=== PATIENT | male | born 1985 | race Caucasian/White ===

== ENCOUNTER → 2018-05-24 14:13 | Outpatient (POV) | payer BC, SELFPAY | PROVIDERS: Visit Provider Specialist | DX: M79.641 Pain in right hand (principal) | CPT/HCPCS: 95886; 95908 ==

== ENCOUNTER → 2018-09-08 17:30 | Outpatient (CLI) | payer BC, SELFPAY ==
--- NOTE | 2018-09-08 17:49 | XR_ITS ---
XR acute abdomen series HISTORY: ITS.REASON: LEFT LOWER QUADRANT ABDOMINAL PAIN ORDERING PHYSICIAN: Brittney Landin MD PATIENT AGE: 33 years COMPARISON: None TECHNIQUE: Upright view of the chest is performed along with upright and supine views of the abdomen and pelvis. FINDINGS: Upright and supine views of the abdomen show an unremarkable bowel gas pattern. No intestinal obstruction or free air is evident. No abnormal calcifications or significant bony anomalies evident. No organomegaly apparent. IMPRESSION: No acute finding.
--- NOTE | 2018-09-08 17:49 | XR_ITS ---
XR chest 2V HISTORY: Cough ORDERING PHYSICIAN: Brittney Landin MD PATIENT AGE: 33 years COMPARISON: 04/01/2011 FINDINGS: The cardiomediastinal silhouette and pulmonary vascularity are within normal limits. The lungs are clear without infiltrates, suspicious nodules, or pleural effusions. No acute bony abnormalities. IMPRESSION: Negative chest, no acute finding
== END ==
PROVIDERS: PCP Family Medicine; Visit Provider Family Medicine
DX: R10.32 Left lower quadrant pain (principal)
CPT/HCPCS: 71046; 74021

== ENCOUNTER → 2018-09-09 10:23 | Outpatient (CLI) | payer BC, SELFPAY ==
--- NOTE | 2018-09-09 10:29 | CT_ITS ---
CT abdomen pelvis wo con CLINICAL INDICATION: Left lower quadrant pain and hematuria ITS.REASON: HEMATURIA, LLQ PAIN ORDERING PHYSICIAN: PHU Rocha PATIENT AGE: 33 years COMPARISON: TECHNIQUE: Axial images obtained with sagittal and coronal reformats. All CT scans at the facility use one or more dose reduction, viz: automated exposure control, ma/kV adjustment per patient size (including targeted exams where dose is matched to indication, i.e. head), or iterative reconstruction technique. PROCEDURE: Oral Contrast: None IV Contrast: None . FINDINGS: Lung bases are clear. There are coronary artery calcifications. There is diffuse fatty liver. The spleen, adrenal glands, and pancreas and gallbladder have an unremarkable unenhanced CT appearance. Severe atrophy of the right kidney with only a small vestigial kidney noted on the right. There is hypertrophy of the left kidney. No renal or ureteral calculi. No hydronephrosis. No intestinal obstruction or free air. Unremarkable appendix. Hyperdensity noted within the appendix and may be related to ingested material. There is stranding of the mesenteric fat in the left mid abdominal region at the level of the umbilicus. Within this region there is a small central area of isodensity surrounded by hypodensity and then peripheral slight increase density of the fat forming a part Consistent with intraperitoneal focal fat infarction/epiploic appendagitis. No evidence of diverticulitis. No intestinal obstruction or free air within small amount fluid in the pelvis centrally. IMPRESSION: 1. Intraperitoneal focal fat infarction/epiploic appendagitis left lower quadrant. 2. Severe atrophy/hypoplasia of the right kidney with hypertrophy of the left kidney. 3. Fatty liver
== END ==
PROVIDERS: PCP Family Medicine; Visit Provider Physician Assistant
DX: R10.32 Left lower quadrant pain (principal); R31.9 Hematuria, unspecified
CPT/HCPCS: 74176

== ENCOUNTER → 2018-12-30 16:12 | Outpatient (CLI) | payer BC, SELFPAY ==
[2018-12-30 16:17] LABS: Microscopic, Urine URINE MICROSCOPIC (MICROSCOPIC)
[2018-12-30 17:03] LABS: Basophils # 0.1 K/mm3 (0-0.2); Basophils % 0.8 % (0.1-2.0); Eosinophils # 0.2 K/mm3 (0.0-0.4); Eosinophils % 2.4 % (0.1-12.0); Lymphocytes # 1.7 K/mm3 (0.7-4.5); Lymphocytes % 27.6 % (10-50); Mean Corpuscular HGB Conc 33.3 g/dL (31.8-35.4); Mean Corpuscular Hemoglobin 30.5 pg (27.0-31.2); Mean Corpuscular Volume 91.4 fl (80-94); Mean Platelet Volume 7.6 fl (7.4-10.4); Monocytes # 0.4 K/mm3 (0.1-1.0); Neutrophils # 3.9 K/mm3 (1.8-7.8); Neutrophils % 63.1 % (37.0-80.0); Platelet Count 230 K/mm3 (142-424); Red Blood Count 5.57 M/mm3 (4.60-6.20); Red Cell Distribution Width 13.8 % (11.5-17.5); White Blood Count 6.2 K/mm3 (4.8-10.8)
[2018-12-30 17:15] LABS: Appearance,Urine CLEAR (Clear); Bilirubin,Urine Negative (Negative); Blood, Urine Negative (Negative); Color,Urine YELLOW (Yellow); Glucose,Urine (UA) Negative (Negative); Ketones,Urine Negative (Negative); Leukocyte Esterase,Urine Negative (Negative); Nitrate,Urine Negative (Negative); PH,Urine 5.5 (5.0-8.5); Protein,Urine 2+ (Negative); Specific Gravity, Urine >= 1.030 (1.005-1.030); Urobilinogen,Urine 0.2 EU/dl (0.2)
[2018-12-30 17:36] LABS: Albumin Level 4.5 gm/dL (3.4-5.0); Anion Gap 15.7 mEq/L (5-15); Blood Urea Nitrogen 20 mg/dL (7-18); Calcium 9.8 mg/dL (8.5-10.1); Carbon Dioxide 28 mmol/L (21.0-32.0); Chloride 103 mmol/L (98-107); Creatinine,Serum 1.32 mg/dL (0.70-1.30); Estimated Glomerular Filt Rate 63 ml/min (>60); GFR (African American) 76 ML/MIN (>60); Glucose 73 mg/dL (74-106); Potassium 3.7 mmoL/L (3.5-5.1); Sodium 143 mmol/L (136-145)
[2018-12-30 17:53] LABS: Creatinine,Urine Random 193 mg/dL (20-320)
[2018-12-31 11:00] LABS: Total Protein,Urine Random 197.8 mg/dL (0.0-11.9)
[2019-01-03 13:18] LABS: Parathyroid Hormone Intact 36 pg/mL (15-65); Vitamin D 25 Hydroxy 16.6 ng/mL (30.0-100.0)
== END ==
PROVIDERS: PCP Family Medicine; Visit Provider Internal Medicine Nephrology
DX: R80.9 Proteinuria, unspecified (principal)
CPT/HCPCS: 36415; 80069; 81001; 82570; 82652; 83970; 84155; 84156; 84166; 85025

== ENCOUNTER → 2019-02-01 08:29 | Outpatient (CLI) | payer BC, SELFPAY ==
[2019-02-01 10:17] LABS: Hemoglobin A1C 5.7 % (0.0-7.0)
[2019-02-01 10:41] LABS: Anion Gap 16.5 mEq/L (5-15); Blood Urea Nitrogen 18 mg/dL (7-18); Calcium 9.5 mg/dL (8.5-10.1); Carbon Dioxide 25 mmol/L (21.0-32.0); Chloride 106 mmol/L (98-107); Chol/HDL Ratio 3.6 (1-3.5); Cholesterol 116 mg/dL (140-200); Creatinine,Serum 1.35 mg/dL (0.70-1.30); Estimated Glomerular Filt Rate 61 ml/min (>60); Free T4 (Free Thyroxine) 0.92 ng/dl (0.76-1.46); GFR (African American) 74 ML/MIN (>60); Glucose 91 mg/dL (74-106); HDL Cholesterol 32 mg/dL (27-67); LDL Cholesterol 49 mg/dL (0-130); Potassium 3.5 mmoL/L (3.5-5.1); Sodium 144 mmol/L (136-145); Thyroid Stimulating Hormone 2.95 uIU/ml (0.358-3.740); Triglycerides 174 mg/dL (30-200); VLDL Cholesterol 35 mg/dL (0-40)
== END ==
PROVIDERS: Visit Provider Family Medicine
DX: I10 Essential (primary) hypertension (principal); E78.1 Pure hyperglyceridemia; R73.01 Impaired fasting glucose; E78.2 Mixed hyperlipidemia
CPT/HCPCS: 36415; 80048; 80061; 83036; 84439; 84443

== ENCOUNTER → 2019-07-02 08:16 | Outpatient (CLI) | payer BC, SELFPAY ==
[2019-07-02 08:22] LABS: Microscopic, Urine URINE MICROSCOPIC (MICROSCOPIC)
[2019-07-02 08:46] LABS: Basophils % 0.7 % (0.1-2.0); Eosinophils # 0.1 K/mm3 (0.0-0.4); Eosinophils % 2.1 % (0.1-12.0); Hematocrit 48.2 % (42.0-52.0); Hemoglobin 16.1 g/dL (14.1-18.0); Lymphocytes # 1.4 K/mm3 (0.7-4.5); Lymphocytes % 29.2 % (10-50); Mean Corpuscular HGB Conc 33.3 g/dL (31.8-35.4); Mean Corpuscular Volume 90.1 fl (80-94); Mean Platelet Volume 7.9 fl (7.4-10.4); Monocytes # 0.2 K/mm3 (0.1-1.0); Monocytes % 3.8 % (1.7-9.3); Neutrophils # 3.1 K/mm3 (1.8-7.8); Neutrophils % 64.2 % (37.0-80.0); Platelet Count 179 K/mm3 (142-424); Red Blood Count 5.35 M/mm3 (4.60-6.20); Red Cell Distribution Width 13.4 % (11.5-17.5); White Blood Count 4.8 K/mm3 (4.8-10.8)
[2019-07-02 08:48] LABS: Appearance,Urine CLEAR (Clear); Bilirubin,Urine Negative (Negative); Blood, Urine Negative (Negative); Color,Urine YELLOW (Yellow); Glucose,Urine (UA) Negative (Negative); Ketones,Urine Negative (Negative); Leukocyte Esterase,Urine Negative (Negative); Nitrate,Urine Negative (Negative); Protein,Urine 2+ (Negative); Specific Gravity, Urine >= 1.030 (1.005-1.030); Urobilinogen,Urine 0.2 EU/dl (0.2)
[2019-07-02 08:51] LABS: Total Protein,Urine Random 129.8 mg/dL (0.0-11.9)
[2019-07-02 09:12] LABS: Squamous Epithelial Cell,Urine Occasional #/hpf (0-5)
[2019-07-02 09:13] LABS: Bacteria,Urine Trace /lpf
[2019-07-02 10:03] LABS: Anion Gap 13.9 mEq/L (5-15); Blood Urea Nitrogen 19 mg/dL (7-18); Calcium 9.2 mg/dL (8.5-10.1); Carbon Dioxide 27 mmol/L (21.0-32.0); Chloride 108 mmol/L (98-107); Creatinine,Serum 1.25 mg/dL (0.70-1.30); Estimated Glomerular Filt Rate 67 ml/min (>60); GFR (African American) 80 ML/MIN (>60); Glucose 95 mg/dL (74-106); Phosphorous 3.3 mg/dL (2.4-4.9); Potassium 3.9 mmoL/L (3.5-5.1); Sodium 145 mmol/L (136-145)
[2019-07-06 07:26] LABS: Microalbumin, Urine 961.3 ug/mL (Not Estab.)
== END ==
PROVIDERS: Visit Provider Internal Medicine Nephrology
DX: R80.9 Proteinuria, unspecified (principal)
CPT/HCPCS: 36415; 80069; 81001; 82043; 84155; 85025

== ENCOUNTER → 2019-07-11 14:30 | Outpatient (POV) | payer BC, SELFPAY | PROVIDERS: Visit Provider Internal Medicine Nephrology | DX: Z00.00 Encounter for general adult medical examination without abnormal findings (principal) ==

== ENCOUNTER → 2019-12-09 08:16 | Outpatient (CLI) | payer BC, SELFPAY ==
[2019-12-09 11:45] LABS: Alanine Aminotransferase 37 U/L (12-78); Albumin/Globulin Ratio 1.5 (1.1-1.8); Alkaline Phosphatase 63 U/L (46-116); Anion Gap 12.9 mEq/L (5-15); Aspartate Amino Transferase 22 U/L (15-37); Bilirubin,Total 0.4 mg/dL (0.2-1.0); Blood Urea Nitrogen 16 mg/dL (7-18); Carbon Dioxide 26 mmol/L (21.0-32.0); Chloride 107 mmol/L (98-107); Chol/HDL Ratio 4.9 (1-3.5); Cholesterol 170 mg/dL (140-200); Creatinine,Serum 1.19 mg/dL (0.70-1.30); Estimated Glomerular Filt Rate 70 ml/min (>60); Free T4 (Free Thyroxine) 0.95 ng/dl (0.76-1.46); GFR (African American) 85 ML/MIN (>60); Globulin 2.6 gm/dl (1.3-3.2); Glucose 107 mg/dL (74-106); HDL Cholesterol 35 mg/dL (27-67); LDL Cholesterol 84 mg/dL (0-130); Potassium 3.9 mmoL/L (3.5-5.1); Sodium 142 mmol/L (136-145); Thyroid Stimulating Hormone 3.02 uIU/ml (0.358-3.740); Total Protein,Serum 6.6 gm/dL (6.4-8.2); Triglycerides 257 mg/dL (30-200); VLDL Cholesterol 51 mg/dL (0-40)
[2019-12-09 11:48] LABS: Hemoglobin A1C 5.5 % (0.0-7.0)
[2019-12-09 11:51] LABS: Creatinine,Urine Random 146 mg/dL (20-320)
[2019-12-10 15:31] LABS: Vitamin D 25 Hydroxy 18.2 ng/mL (30.0-100.0)
[2019-12-10 15:32] LABS: Microalbumin, Urine 2300.6 ug/mL (Not Estab.)
== END ==
PROVIDERS: Visit Provider Family Medicine
DX: E78.1 Pure hyperglyceridemia (principal); E78.2 Mixed hyperlipidemia; R73.01 Impaired fasting glucose; I10 Essential (primary) hypertension; E55.9 Vitamin D deficiency, unspecified
CPT/HCPCS: 36415; 80053; 80061; 82043; 82570; 82652; 83036; 84439; 84443

== ENCOUNTER → 2020-08-07 08:48 | Outpatient (CLI) | payer BC, SELFPAY ==
[2020-08-07 08:51] LABS: Microscopic, Urine URINE MICROSCOPIC (MICROSCOPIC)
[2020-08-07 09:08] LABS: Basophils % 0.7 % (0.1-2.0); Eosinophils # 0.1 K/mm3 (0.0-0.4); Eosinophils % 2.1 % (0.1-12.0); Hematocrit 47.7 % (42.0-52.0); Hemoglobin 16.1 g/dL (14.1-18.0); Lymphocytes # 1.7 K/mm3 (0.7-4.5); Lymphocytes % 29.1 % (10-50); Mean Corpuscular HGB Conc 33.7 g/dL (31.8-35.4); Mean Corpuscular Hemoglobin 30.5 pg (27.0-31.2); Mean Corpuscular Volume 90.5 fl (80-94); Monocytes # 0.2 K/mm3 (0.1-1.0); Monocytes % 4.2 % (1.7-9.3); Neutrophils # 3.6 K/mm3 (1.8-7.8); Neutrophils % 63.8 % (37.0-80.0); Platelet Count 187 K/mm3 (142-424); Red Blood Count 5.27 M/mm3 (4.60-6.20); Red Cell Distribution Width 13.6 % (11.5-17.5); White Blood Count 5.7 K/mm3 (4.8-10.8)
[2020-08-07 09:21] LABS: Appearance,Urine CLEAR (Clear); Bilirubin,Urine Negative (Negative); Blood, Urine TRACE-I (Negative); Color,Urine YELLOW (Yellow); Glucose,Urine (UA) Negative (Negative); Ketones,Urine Negative (Negative); Leukocyte Esterase,Urine Negative (Negative); Nitrate,Urine Negative (Negative); Protein,Urine 3+ (Negative); Specific Gravity, Urine >= 1.030 (1.005-1.030); Urobilinogen,Urine 0.2 EU/dl (0.2)
[2020-08-07 09:43] LABS: Bacteria,Urine Trace /lpf; Hyaline Casts,Urine Occasional #/lpf (0); Squamous Epithelial Cell,Urine Occasional #/hpf (0-5)
[2020-08-07 09:44] LABS: Creatinine,Urine Random 180 mg/dL (Not Estab.)
[2020-08-07 10:37] LABS: Albumin Level 4.6 g/dl (3.5-5.0); Blood Urea Nitrogen 16 mg/dl (9-20); Carbon Dioxide 28 mmol/L (22.0-30.0); Chloride 106 mmol/L (98-107); Estimated Glomerular Filt Rate 63 ml/min (>60); GFR (African American) 76 ML/MIN (>60); Glucose 114 mg/dl (74-100); Sodium 143 mmol/L (136-145); Uric Acid 3.1 mg/dl (3.5-8.5)
[2020-08-07 10:49] LABS: Intact Parathyroid Hormone 37.6 pg/mL (7.5-53.5)
[2020-08-07 10:55] LABS: 25-OH Vitamin D, Total 33.7 ng/mL (30-100)
== END ==
PROVIDERS: Visit Provider Internal Medicine Nephrology
DX: Q60.0 Renal agenesis, unilateral (principal); N18.2 Chronic kidney disease, stage 2 (mild)
CPT/HCPCS: 36415; 80069; 81001; 82306; 82570; 83970; 84155; 84550; 85025

== ENCOUNTER → 2020-09-06 14:28 | Outpatient (POV) | payer BC, SELFPAY | PROVIDERS: Visit Provider Internal Medicine Nephrology | DX: Z00.00 Encounter for general adult medical examination without abnormal findings (principal) ==

== ENCOUNTER → 2020-10-08 07:01 | Outpatient (CLI) | payer BC, SELFPAY ==
[2020-10-08 10:32] LABS: Collection Time,Urine 24 hours; Total Volume,Urine 1200 mL (800-1800)
[2020-10-08 10:39] LABS: Creatinine 24 Hour,Urine 1596 mg/24hr (630-2500)
[2020-10-08 10:45] LABS: Creatinine,Urine Random 133 mg/dL (Not Estab.); Total Protein 24 Hour,Urine 4284 mg/24 hr (40-90)
== END ==
PROVIDERS: Visit Provider Internal Medicine Nephrology
DX: R80.9 Proteinuria, unspecified (principal)
CPT/HCPCS: 82570; 84155

== ENCOUNTER → 2020-10-15 14:25 | Outpatient (POV) | payer BC, SELFPAY | PROVIDERS: Visit Provider Internal Medicine Nephrology | DX: Z00.00 Encounter for general adult medical examination without abnormal findings (principal) ==

== ENCOUNTER → 2020-10-15 15:50 | Outpatient (CLI) | payer BC, SELFPAY ==
[2020-10-15 16:52] LABS: Activated Partial Thrombo Time 27.9 seconds (23.6-34.0); INR 0.96 (0.9-1.1); Prothrombin Time 10.7 seconds (9.4-11.8)
[2020-10-17 10:27] LABS: HIV Screen 4th Generation wRfx Non Reactive (Non Reactive)
[2020-10-17 10:57] LABS: Hep A Ab, IgM Negative (Negative); Hepatitis B Core Antibody IgM Negative (Negative); Hepatitis B Surface Antigen Negative (Negative)
[2020-10-17 11:36] LABS: Complement C3 196 mg/dL (82-167); Hepatitis C Antibody <0.1 s/co ratio (0.0-0.9)
[2020-10-17 15:10] LABS: Immunoglobulin A, Qn 254 mg/dL (90-386); Immunoglobulin G, Qn 738 mg/dL (603-1613)
[2020-10-17 22:07] LABS: Albumin 4.1 g/dL (2.9-4.4); Alpha-1-Globulin 0.2 g/dL (0.0-0.4); Alpha-2-Globulin 0.8 g/dL (0.4-1.0); Free Kappa Lt Chains 18.4 mg/L (3.3-19.4); Free Lambda Lt Chains 18.5 mg/L (5.7-26.3); Gamma Globulin 0.9 g/dL (0.4-1.8); Protein, Total 7.5 g/dL (6.0-8.5)
[2020-10-18 02:28] LABS: Immunoglobulin M, Qn 145 mg/dL (20-172)
[2020-10-18 14:26] LABS: Antinuclear Antibodies, IFA Negative (.)
== END ==
PROVIDERS: Visit Provider Internal Medicine Nephrology
DX: R80.9 Proteinuria, unspecified (principal)
CPT/HCPCS: 36415; 80074; 82784; 83883; 84155; 84165; 85610; 85730; 86038; 86161; 86334; 86703; G0432

== ENCOUNTER → 2020-11-05 06:55 | Outpatient (CLI) | payer BC, SELFPAY ==
[2020-11-05 06:59] LABS: Microscopic, Urine URINE MICROSCOPIC (MICROSCOPIC)
[2020-11-05 07:37] LABS: Appearance,Urine CLEAR (Clear); Bilirubin,Urine Negative (Negative); Blood, Urine 1+ (Negative); Color,Urine YELLOW (Yellow); Glucose,Urine (UA) Negative (Negative); Ketones,Urine Negative (Negative); Leukocyte Esterase,Urine Negative (Negative); Nitrate,Urine Negative (Negative); PH,Urine 5.5 (5.0-8.5); Protein,Urine 3+ (Negative); Specific Gravity, Urine >= 1.030 (1.005-1.030); Urobilinogen,Urine 0.2 EU/dl (0.2)
[2020-11-05 07:51] LABS: Squamous Epithelial Cell,Urine Occasional #/hpf (0-5)
[2020-11-05 08:08] LABS: Basophils % 0.6 % (0.1-2.0); Eosinophils # 0.1 K/mm3 (0.0-0.4); Eosinophils % 1.8 % (0.1-12.0); Hematocrit 46.8 % (42.0-52.0); Hemoglobin 16.5 g/dL (14.1-18.0); Lymphocytes # 1.8 K/mm3 (0.7-4.5); Lymphocytes % 28.2 % (10-50); Mean Corpuscular HGB Conc 35.4 g/dL (31.8-35.4); Mean Corpuscular Hemoglobin 30.9 pg (27.0-31.2); Mean Corpuscular Volume 87.4 fl (80-94); Mean Platelet Volume 8.4 fl (7.4-10.4); Monocytes # 0.3 K/mm3 (0.1-1.0); Monocytes % 4.7 % (1.7-9.3); Neutrophils # 4.2 K/mm3 (1.8-7.8); Neutrophils % 64.6 % (37.0-80.0); Platelet Count 203 K/mm3 (142-424); Red Blood Count 5.35 M/mm3 (4.60-6.20); Red Cell Distribution Width 14.2 % (11.5-17.5); White Blood Count 6.5 K/mm3 (4.8-10.8)
[2020-11-05 08:16] LABS: Albumin Level 4.9 g/dl (3.5-5.0); Anion Gap 16.9 mEq/L (5-15); Blood Urea Nitrogen 18 mg/dl (9-20); Calcium 10.2 mg/dl (8.4-10.2); Carbon Dioxide 22 mmol/L (22.0-30.0); Chloride 106 mmol/L (98-107); Estimated Glomerular Filt Rate 63 ml/min (>60); GFR (African American) 76 ML/MIN (>60); Glucose 114 mg/dl (74-100); Phosphorous 3.7 mg/dl (2.5-4.5); Potassium 3.9 mmoL/L (3.5-5.1); Sodium 141 mmol/L (136-145)
[2020-11-05 10:00] LABS: Creatinine,Urine Random 239 mg/dL (Not Estab.)
== END ==
PROVIDERS: Visit Provider Internal Medicine Nephrology
DX: R80.9 Proteinuria, unspecified (principal)
CPT/HCPCS: 36415; 80069; 81001; 82570; 84155; 85025

== ENCOUNTER → 2020-12-21 07:55 | Outpatient (CLI) | payer BC, SELFPAY ==
[2020-12-21 09:41] LABS: Chloride 107 mmol/L (98-107)
[2020-12-21 09:42] LABS: Potassium 3.9 mmoL/L (3.5-5.1); Sodium 142 mmol/L (136-145)
[2020-12-21 09:44] LABS: Alanine Aminotransferase 35 U/L (12-78); Alkaline Phosphatase 68 U/L (38-126); Anion Gap 11.9 mEq/L (5-15); Aspartate Amino Transferase 29 U/L (17-59); Bilirubin,Total 0.6 mg/dl (0.2-1.3); Blood Urea Nitrogen 20 mg/dl (9-20); Carbon Dioxide 27 mmol/L (22.0-30.0); Cholesterol 171 mg/dl (140-200); Estimated Glomerular Filt Rate 58 ml/min (>60); GFR (African American) 70 ML/MIN (>60); Triglycerides 353 mg/dl (30-150); VLDL Cholesterol 71 mg/dL (0-40)
[2020-12-21 09:45] LABS: Albumin Level 4.8 g/dl (3.5-5.0); Albumin/Globulin Ratio 1.6 (1.1-1.8); Calcium 10.4 mg/dl (8.4-10.2); Chol/HDL Ratio 4.4 (1-3.5); Glucose 103 mg/dl (74-100); HDL Cholesterol 39 mg/dl (40-60); Total Protein,Serum 7.8 g/dl (6.3-8.2)
[2020-12-21 09:56] LABS: Direct LDL Cholesterol 80.21 mg/dL (100-129)
[2020-12-21 10:10] LABS: Creatinine,Urine Random 197 mg/dL (Not Estab.)
[2020-12-21 10:12] LABS: 25-OH Vitamin D, Total 19.8 ng/mL (30-100)
[2020-12-21 10:16] LABS: Thyroid Stimulating Hormone 3.24 uIU/mL (0.465-4.68)
[2020-12-21 17:04] LABS: Microalbumin > 1140.000 mg/L (0-16.7)
== END ==
PROVIDERS: Visit Provider Family Medicine
DX: I10 Essential (primary) hypertension (principal); E78.2 Mixed hyperlipidemia; E55.9 Vitamin D deficiency, unspecified
CPT/HCPCS: 36415; 80053; 80061; 82043; 82306; 82570; 84443

== ENCOUNTER → 2021-01-18 16:01 | Outpatient (CLI) | payer BC, SELFPAY ==
--- NOTE | 2021-01-18 16:01 | MR_ITS ---
PROCEDURE: MR HEAD/BRAIN WO CON CLINICAL INDICATION: new onset ice pick headaches COMPARISON: No exams were available for comparison TECHNIQUE: Routine multiplanar multi echo sequences are performed without gadolinium enhancement. FINDINGS: No midline shift, mass effect, intracranial hemorrhage, or hydrocephalus. No evidence of acute infarction The cerebellopontine angles, cerebellum, and brainstem are unremarkable. There is normal welch-white matter differentiation with no abnormal white matter signal intensity evident. The pituitary, optic chiasm, corpus callosum, and craniocervical junction have an unremarkable appearance. No mastoid effusion or sinus air-fluid level. IMPRESSION: Negative MRI of the brain without contrast. No acute finding. Dictated by: Cam Yoon MD 01/19/2021 12:53 Cam Yoon MD in [place] 01/19/2021 12:53
== END ==
PROVIDERS: PCP Family Medicine; Visit Provider Specialist
DX: R51.9 Headache, unspecified (principal)
CPT/HCPCS: 70551; G0399

== ENCOUNTER → 2021-04-02 07:15 | Outpatient (CLI) | payer BC, SELFPAY ==
[2021-04-02 07:19] LABS: Microscopic, Urine URINE MICROSCOPIC (MICROSCOPIC)
[2021-04-02 07:37] LABS: Basophils % 0.6 % (0.1-2.0); Eosinophils # 0.1 K/mm3 (0.0-0.4); Eosinophils % 2.3 % (0.1-12.0); Hematocrit 43.5 % (42.0-52.0); Hemoglobin 14.8 g/dL (14.1-18.0); Lymphocytes # 1.7 K/mm3 (0.7-4.5); Lymphocytes % 31.5 % (10-50); Mean Corpuscular HGB Conc 33.9 g/dL (31.8-35.4); Mean Corpuscular Hemoglobin 30.2 pg (27.0-31.2); Mean Corpuscular Volume 89.3 fl (80-94); Mean Platelet Volume 7.8 fl (7.4-10.4); Monocytes # 0.3 K/mm3 (0.1-1.0); Neutrophils # 3.2 K/mm3 (1.8-7.8); Neutrophils % 59.6 % (37.0-80.0); Platelet Count 165 K/mm3 (142-424); Red Blood Count 4.88 M/mm3 (4.60-6.20); Red Cell Distribution Width 14.1 % (11.5-17.5); White Blood Count 5.4 K/mm3 (4.8-10.8)
[2021-04-02 07:52] LABS: Appearance,Urine CLEAR (Clear); Bilirubin,Urine Negative (Negative); Blood, Urine Negative (Negative); Color,Urine YELLOW (Yellow); Glucose,Urine (UA) Negative (Negative); Ketones,Urine Negative (Negative); Leukocyte Esterase,Urine Negative (Negative); Nitrate,Urine Negative (Negative); PH,Urine 5.5 (5.0-8.5); Protein,Urine 2+ (Negative); Specific Gravity, Urine >= 1.030 (1.005-1.030); Urobilinogen,Urine 0.2 EU/dl (0.2)
[2021-04-02 08:02] LABS: Creatinine,Urine Random 147 mg/dL (Not Estab.)
[2021-04-02 08:04] LABS: Squamous Epithelial Cell,Urine Occasional #/hpf (0-5)
[2021-04-02 08:33] LABS: Albumin Level 4.5 g/dl (3.5-5.0); Anion Gap 10.1 mEq/L (5-15); Blood Urea Nitrogen 20 mg/dl (9-20); Calcium 9.3 mg/dl (8.4-10.2); Carbon Dioxide 26 mmol/L (22.0-30.0); Chloride 109 mmol/L (98-107); Estimated Glomerular Filt Rate 63 ml/min (>60); GFR (African American) 76 ML/MIN (>60); Glucose 103 mg/dl (74-100); Phosphorous 2.9 mg/dl (2.5-4.5); Potassium 4.1 mmoL/L (3.5-5.1); Sodium 141 mmol/L (136-145)
== END ==
PROVIDERS: Visit Provider Internal Medicine Nephrology
DX: N05.1 Unspecified nephritic syndrome with focal and segmental glomerular lesions (principal)
CPT/HCPCS: 36415; 80069; 81001; 82570; 84155; 85025

== ENCOUNTER → 2021-04-04 12:49 | Outpatient (POV) | payer BC, SELFPAY | PROVIDERS: Visit Provider Internal Medicine Nephrology | DX: Z00.00 Encounter for general adult medical examination without abnormal findings (principal) ==

== ENCOUNTER → 2021-11-07 07:06 | Outpatient (CLI) | payer BC, SELFPAY ==
[2021-11-07 07:12] LABS: Microscopic, Urine URINE MICROSCOPIC (MICROSCOPIC)
[2021-11-07 07:54] LABS: Basophils # 0.1 K/mm3 (0-0.2); Basophils % 2.5 % (0.1-2.0); Eosinophils # 0.1 K/mm3 (0.0-0.4); Hematocrit 49.2 % (42.0-52.0); Hemoglobin 16.4 g/dL (14.1-18.0); Lymphocytes # 1.7 K/mm3 (0.7-4.5); Lymphocytes % 32.6 % (10-50); Mean Corpuscular HGB Conc 33.3 g/dL (31.8-35.4); Mean Corpuscular Hemoglobin 30.9 pg (27.0-31.2); Mean Corpuscular Volume 92.9 fl (80-94); Mean Platelet Volume 8.5 fl (7.4-10.4); Monocytes # 0.3 K/mm3 (0.1-1.0); Monocytes % 5.3 % (1.7-9.3); Neutrophils % 57.7 % (37.0-80.0); Platelet Count 202 K/mm3 (142-424); Red Cell Distribution Width 13.9 % (11.5-17.5); White Blood Count 5.2 K/mm3 (4.8-10.8)
[2021-11-07 08:01] LABS: Albumin Level 4.5 g/dl (3.5-5.0); Anion Gap 10.7 mEq/L (5-15); Blood Urea Nitrogen 20 mg/dl (9-20); Calcium 9.9 mg/dl (8.4-10.2); Carbon Dioxide 29 mmol/L (22.0-30.0); Chloride 104 mmol/L (98-107); Estimated Glomerular Filt Rate 53 ml/min (>60); GFR (African American) 64 ML/MIN (>60); Glucose 103 mg/dl (74-100); Phosphorous 3.4 mg/dl (2.5-4.5); Potassium 3.7 mmoL/L (3.5-5.1); Sodium 140 mmol/L (136-145)
[2021-11-07 08:13] LABS: Intact Parathyroid Hormone 31.8 pg/mL (7.5-53.5)
[2021-11-07 08:17] LABS: 25-OH Vitamin D, Total 18.6 ng/mL (30-100)
[2021-11-07 09:25] LABS: Appearance,Urine CLEAR (Clear); Bilirubin,Urine Negative (Negative); Blood, Urine Negative (Negative); Color,Urine YELLOW (Yellow); Glucose,Urine (UA) Negative (Negative); Ketones,Urine Negative (Negative); Leukocyte Esterase,Urine Negative (Negative); Nitrate,Urine Negative (Negative); Protein,Urine 2+ (Negative); Specific Gravity, Urine >= 1.030 (1.005-1.030); Urobilinogen,Urine 0.2 EU/dl (0.2)
[2021-11-07 09:43] LABS: RBC,Urine Occasional #/hpf (0-3); Squamous Epithelial Cell,Urine Occasional #/hpf (0-5)
[2021-11-07 09:46] LABS: Creatinine,Urine Random 160 mg/dL (Not Estab.)
== END ==
PROVIDERS: Visit Provider Internal Medicine Nephrology
DX: N18.2 Chronic kidney disease, stage 2 (mild) (principal); E55.9 Vitamin D deficiency, unspecified
CPT/HCPCS: 36415; 80069; 81001; 82306; 82570; 83970; 84155; 85025

== ENCOUNTER → 2021-11-11 15:16 | Outpatient (POV) | payer BC, SELFPAY | PROVIDERS: Visit Provider Internal Medicine Nephrology | DX: Z00.00 Encounter for general adult medical examination without abnormal findings (principal) ==

== ENCOUNTER → 2022-04-09 07:33 | Outpatient (CLI) | payer BC, SELFPAY ==
[2022-04-09 07:40] LABS: Microscopic, Urine URINE MICROSCOPIC (MICROSCOPIC)
[2022-04-09 08:02] LABS: Basophils % 0.5 % (0.1-2.0); Eosinophils # 0.1 K/mm3 (0.0-0.4); Hematocrit 44.3 % (42.0-52.0); Hemoglobin 15.6 g/dL (14.1-18.0); Lymphocytes # 1.8 K/mm3 (0.7-4.5); Lymphocytes % 36.5 % (10-50); Mean Corpuscular HGB Conc 35.1 g/dL (31.8-35.4); Mean Corpuscular Hemoglobin 30.8 pg (27.0-31.2); Mean Corpuscular Volume 87.6 fl (80-94); Mean Platelet Volume 8.1 fl (7.4-10.4); Monocytes # 0.3 K/mm3 (0.1-1.0); Neutrophils # 2.7 K/mm3 (1.8-7.8); Neutrophils % 54.9 % (37.0-80.0); Platelet Count 181 K/mm3 (142-424); Red Blood Count 5.06 M/mm3 (4.60-6.20); Red Cell Distribution Width 13.6 % (11.5-17.5)
[2022-04-09 08:02] LABS: Appearance,Urine CLEAR (Clear); Bilirubin,Urine Negative (Negative); Blood, Urine TRACE-I (Negative); Color,Urine YELLOW (Yellow); Glucose,Urine (UA) Negative (Negative); Ketones,Urine Negative (Negative); Leukocyte Esterase,Urine Negative (Negative); Nitrate,Urine Negative (Negative); Protein,Urine 3+ (Negative); Specific Gravity, Urine >= 1.030 (1.005-1.030); Urobilinogen,Urine 0.2 EU/dl (0.2)
[2022-04-09 08:11] LABS: Creatinine,Urine Random 203 mg/dL (Not Estab.)
[2022-04-09 08:16] LABS: Bacteria,Urine Trace /lpf; RBC,Urine Occasional #/hpf (0-3); Squamous Epithelial Cell,Urine Occasional #/hpf (0-5)
[2022-04-09 08:18] LABS: Chloride 107 mmol/L (98-107); Sodium 141 mmol/L (136-145)
[2022-04-09 08:19] LABS: Potassium 3.8 mmoL/L (3.5-5.1)
[2022-04-09 08:21] LABS: Alanine Aminotransferase 48 U/L (12-78); Anion Gap 10.8 mEq/L (5-15); Aspartate Amino Transferase 41 U/L (17-59); Bilirubin,Total 0.5 mg/dl (0.2-1.3); Blood Urea Nitrogen 17 mg/dl (9-20); Carbon Dioxide 27 mmol/L (22.0-30.0); Cholesterol 172 mg/dl (140-200); Estimated Glomerular Filt Rate 58 ml/min (>60); GFR (African American) 70 ML/MIN (>60); Triglycerides 304 mg/dl (30-150); VLDL Cholesterol 61 mg/dL (0-40)
[2022-04-09 08:22] LABS: Albumin Level 4.4 g/dl (3.5-5.0); Albumin/Globulin Ratio 2.1 (1.1-1.8); Alkaline Phosphatase 58 U/L (38-126); Calcium 9.7 mg/dl (8.4-10.2); Chol/HDL Ratio 4.6 (1-3.5); Globulin 2.1 g/dL (1.3-3.2); Glucose 130 mg/dl (74-100); HDL Cholesterol 37 mg/dl (40-60); Total Protein,Serum 6.5 g/dl (6.3-8.2)
[2022-04-09 08:33] LABS: Direct LDL Cholesterol 90.85 mg/dL (100-129)
[2022-04-09 08:38] LABS: 25-OH Vitamin D, Total 30.9 ng/mL (30-100)
[2022-04-09 08:51] LABS: Thyroid Stimulating Hormone 3.75 uIU/mL (0.465-4.68)
[2022-04-09 10:06] LABS: Hemoglobin A1C 5.4 % (4.0-6.0)
== END ==
PROVIDERS: PCP Family Medicine; Visit Provider Internal Medicine Nephrology
DX: I10 Essential (primary) hypertension (principal); E78.2 Mixed hyperlipidemia; E78.1 Pure hyperglyceridemia; R73.01 Impaired fasting glucose; E55.9 Vitamin D deficiency, unspecified; N05.1 Unspecified nephritic syndrome with focal and segmental glomerular lesions; N18.2 Chronic kidney disease, stage 2 (mild)
CPT/HCPCS: 36415; 80053; 80061; 81001; 82306; 82570; 83036; 84100; 84155; 84443; 85025

== ENCOUNTER → 2022-04-14 15:14 | Outpatient (POV) | payer BC, SELFPAY | PROVIDERS: Visit Provider Internal Medicine Nephrology | DX: Z00.00 Encounter for general adult medical examination without abnormal findings (principal) ==

== ENCOUNTER → 2022-09-18 15:30 | Outpatient (CLI) | payer BC, SELFPAY ==
--- NOTE | 2022-09-18 15:36 | XR_ITS ---
FINAL REPORT CLINICAL HISTORY: UPPER ABDOMINAL PAIN FINDINGS: ABDOMEN SINGLE VIEW There is a nonspecific, nonobstructive bowel gas pattern. No bowel dilation is identified. There is a moderate amount of stool throughout the colon. No abnormal calcification is seen. IMPRESSION: Moderate stool burden. Reviewed, Interpreted and Dictated by Gabriel Veloz MD Transcribed by Wendy Cody Authenticated and [facility]
== END ==
PROVIDERS: PCP Family Medicine; Visit Provider Family Medicine
DX: R10.10 Upper abdominal pain, unspecified (principal)
CPT/HCPCS: 74018

== ENCOUNTER → 2022-11-08 10:04 | Outpatient (CLI) | payer BC, SELFPAY ==
[2022-11-08 10:12] LABS: Microscopic, Urine URINE MICROSCOPIC (MICROSCOPIC)
[2022-11-08 10:38] LABS: Hematocrit 44.9 % (42.0-52.0); Hemoglobin 14.5 g/dL (14.1-18.0); Mean Corpuscular HGB Conc 32.4 g/dL (31.8-35.4); Mean Corpuscular Hemoglobin 30.3 pg (27.0-31.2); Mean Corpuscular Volume 93.7 fl (80-94); Platelet Count 185 K/mm3 (142-424); Red Blood Count 4.79 M/mm3 (4.60-6.20); Red Cell Distribution Width 14.5 % (11.5-17.5); White Blood Count 4.6 K/mm3 (4.8-10.8)
[2022-11-08 11:07] LABS: Appearance,Urine CLEAR (Clear); Bilirubin,Urine Negative (Negative); Blood, Urine Negative (Negative); Color,Urine YELLOW (Yellow); Glucose,Urine (UA) Negative (Negative); Ketones,Urine Negative (Negative); Leukocyte Esterase,Urine Negative (Negative); Nitrate,Urine Negative (Negative); PH,Urine 5.5 (5.0-8.5); Protein,Urine 3+ (Negative); Specific Gravity, Urine >= 1.030 (1.005-1.030); Urobilinogen,Urine 0.2 EU/dl (0.2)
[2022-11-08 11:08] LABS: Albumin Level 4.4 g/dl (3.5-5.0); Anion Gap 10.9 mEq/L (5-15); Blood Urea Nitrogen 19 mg/dl (9-20); Carbon Dioxide 25 mmol/L (22.0-30.0); Chloride 110 mmol/L (98-107); Estimated Glomerular Filt Rate 57 ml/min (>60); GFR (African American) 69 ML/MIN (>60); Glucose 116 mg/dl (74-100); Phosphorous 3.1 mg/dl (2.5-4.5); Potassium 3.9 mmoL/L (3.5-5.1); Sodium 142 mmol/L (136-145)
[2022-11-08 11:23] LABS: Creatinine,Urine Random 168 mg/dL (Not Estab.)
[2022-11-08 11:31] LABS: Bacteria,Urine Trace /lpf; Hyaline Casts,Urine Occasional #/lpf (0); RBC,Urine Occasional #/hpf (0-3); Squamous Epithelial Cell,Urine Occasional #/hpf (0-5); WBC,Urine Occasional #/hpf (0-3)
== END ==
LOC: LAB 10:04
PROVIDERS: PCP Family Medicine; Visit Provider Internal Medicine Nephrology
DX: N18.31 Chronic kidney disease, stage 3a (principal)
CPT/HCPCS: 36415; 80069; 81001; 82570; 84155; 85014; 85018; 85048; 85049

== ENCOUNTER → 2022-11-10 15:14 | Outpatient (POV) | payer BC, SELFPAY | PROVIDERS: Visit Provider Internal Medicine Nephrology | DX: Z00.00 Encounter for general adult medical examination without abnormal findings (principal) ==

== ENCOUNTER → 2023-10-09 07:40 | Outpatient (CLI) | payer BC, SELFPAY ==
[2023-10-09 07:45] LABS: Microscopic, Urine URINE MICROSCOPIC (MICROSCOPIC)
[2023-10-09 08:07] LABS: Hematocrit 43.4 % (42.0-52.0); Hemoglobin 15.4 g/dL (14.1-18.0); Mean Corpuscular HGB Conc 35.4 g/dL (31.8-35.4); Mean Corpuscular Hemoglobin 31.7 pg (27.0-31.2); Mean Corpuscular Volume 89.6 fl (80-94); Platelet Count 173 K/mm3 (142-424); Red Blood Count 4.84 M/mm3 (4.60-6.20); Red Cell Distribution Width 14.3 % (11.5-17.5); White Blood Count 4.8 K/mm3 (4.8-10.8)
[2023-10-09 08:18] LABS: Appearance,Urine CLEAR (Clear); Bilirubin,Urine Negative (Negative); Blood, Urine Negative (Negative); Color,Urine YELLOW (Yellow); Glucose,Urine (UA) Negative (Negative); Ketones,Urine Negative (Negative); Leukocyte Esterase,Urine Negative (Negative); Nitrate,Urine Negative (Negative); Protein,Urine 3+ (Negative); Specific Gravity, Urine >= 1.030 (1.005-1.030); Urobilinogen,Urine 0.2 EU/dl (0.2)
[2023-10-09 08:36] LABS: Squamous Epithelial Cell,Urine Occasional #/hpf (0-5)
[2023-10-09 08:39] LABS: Creatinine,Urine Random 161 mg/dL (Not Estab.)
[2023-10-09 09:08] LABS: Chloride 108 mmol/L (98-107)
[2023-10-09 09:09] LABS: Potassium 3.9 mmoL/L (3.5-5.1)
[2023-10-09 09:11] LABS: Alanine Aminotransferase 38 U/L (12-78); Alkaline Phosphatase 69 U/L (38-126); Aspartate Amino Transferase 31 U/L (17-59); Bilirubin,Total 0.6 mg/dl (0.2-1.3); Blood Urea Nitrogen 22 mg/dl (9-20); Carbon Dioxide 27 mmol/L (22.0-30.0); Cholesterol 180 mg/dl (140-200); Estimated Glomerular Filt Rate 49 ml/min (>60); GFR (African American) 59 ML/MIN (>60)
[2023-10-09 09:12] LABS: Albumin Level 4.4 g/dl (3.5-5.0); Albumin/Globulin Ratio 1.8 (1.1-1.8); Calcium 9.1 mg/dl (8.4-10.2); Chol/HDL Ratio 6.4 (1-3.5); Globulin 2.4 g/dL (1.3-3.2); Glucose 130 mg/dl (74-100); HDL Cholesterol 28 mg/dl (40-60); Total Protein,Serum 6.8 g/dl (6.3-8.2)
[2023-10-09 09:20] LABS: Hemoglobin A1C 5.9 % (4.0-6.0); Triglycerides 482 mg/dl (30-150)
[2023-10-09 09:23] LABS: Direct LDL Cholesterol 73.61 mg/dL (100-129)
[2023-10-09 09:34] LABS: Anion Gap 10.9 mEq/L (5-15); Sodium 142 mmol/L (136-145)
[2023-10-09 16:06] LABS: Blood Urea Nitrogen 21 mg/dl (9-20); Carbon Dioxide 25 mmol/L (22.0-30.0); Chloride 107 mmol/L (98-107); Estimated Glomerular Filt Rate 53 ml/min (>60); GFR (African American) 64 ML/MIN (>60); Phosphorous 3.3 mg/dl (2.5-4.5)
[2023-10-09 16:07] LABS: Albumin Level 4.3 g/dl (3.5-5.0); Glucose 130 mg/dl (74-100)
[2023-10-09 16:08] LABS: Calcium 8.9 mg/dl (8.4-10.2); Sodium 139 mmol/L (136-145)
[2023-10-09 16:23] LABS: 25-OH Vitamin D, Total 28.8 ng/mL (30-100)
[2023-10-09 16:38] LABS: Thyroid Stimulating Hormone 2.84 uIU/mL (0.465-4.68)
[2023-10-18 22:28] LABS: PTH Related Peptide < 2.0
== END ==
LOC: LAB 07:41
PROVIDERS: PCP Family Medicine; Visit Provider Internal Medicine Nephrology
DX: N18.31 Chronic kidney disease, stage 3a (principal); E78.2 Mixed hyperlipidemia; E78.1 Pure hyperglyceridemia; E55.9 Vitamin D deficiency, unspecified; R73.01 Impaired fasting glucose; Z68.41 Body mass index [BMI] 40.0-44.9, adult; I12.9 Hypertensive chronic kidney disease with stage 1 through stage 4 chronic kidney disease, or unspecified chronic kidney disease
CPT/HCPCS: 36415; 80053; 80061; 80069; 81001; 82043; 82306; 82397; 82570; 83036; 84155; 84443; 85014; 85018; 85048; 85049

== ENCOUNTER 2024-08-17 07:08 | Outpatient (CLI) | payer BC, SELFPAY ==
[2024-08-17 07:14] LABS: Microscopic, Urine URINE MICROSCOPIC (MICROSCOPIC)
[2024-08-17 07:30] LABS: Hematocrit 41.1 % (42.0-52.0); Hemoglobin 14.7 g/dL (14.1-18.0); Mean Corpuscular HGB Conc 35.8 g/dL (31.8-35.4); Mean Corpuscular Hemoglobin 32.3 pg (27.0-31.2); Mean Corpuscular Volume 90.3 fl (80-94); Platelet Count 169 K/mm3 (142-424); Red Blood Count 4.54 M/mm3 (4.60-6.20); Red Cell Distribution Width 14.6 % (11.5-17.5); White Blood Count 4.2 K/mm3 (4.8-10.8)
[2024-08-17 08:03] LABS: Appearance,Urine CLEAR (Clear); Bilirubin,Urine Negative (Negative); Blood, Urine TRACE-I (Negative); Color,Urine YELLOW (Yellow); Glucose,Urine (UA) Negative (Negative); Ketones,Urine Negative (Negative); Leukocyte Esterase,Urine Negative (Negative); Nitrate,Urine Negative (Negative); Protein,Urine 3+ (Negative); Specific Gravity, Urine >= 1.030 (1.005-1.030); Urobilinogen,Urine 0.2 EU/dl (0.2)
[2024-08-17 08:08] LABS: Albumin Level 4.3 g/dl (3.5-5.0); Chloride 108 mmol/L (98-107); Potassium 3.9 mmoL/L (3.5-5.1); Sodium 139 mmol/L (136-145)
[2024-08-17 08:11] LABS: Anion Gap 10.9 mEq/L (5-15); Blood Urea Nitrogen 18 mg/dl (9-20); Carbon Dioxide 24 mmol/L (22.0-30.0); Estimated Glomerular Filt Rate 62 ml/min (>60); GFR (African American) 75 ML/MIN (>60)
[2024-08-17 08:12] LABS: Calcium 9.7 mg/dl (8.4-10.2); Glucose 132 mg/dl (74-100)
[2024-08-17 08:20] LABS: Bacteria,Urine Trace /lpf; RBC,Urine Occasional #/hpf (0-3); Squamous Epithelial Cell,Urine Occasional #/hpf (0-5); WBC,Urine Occasional #/hpf (0-3)
[2024-08-17 08:23] LABS: Creatinine,Urine Random 193 mg/dL (Not Estab.)
[2024-08-17 08:40] LABS: 25-OH Vitamin D, Total 23.1 ng/mL (30-100)
== END 2024-08-17 23:59 | disposition home or self-care (01) ==
LOC: LAB 07:10
PROVIDERS: PCP Family Medicine; Visit Provider Internal Medicine Nephrology
DX: N05.1 Unspecified nephritic syndrome with focal and segmental glomerular lesions (principal)
CPT/HCPCS: 36415; 80069; 81001; 82306; 82570; 84156; 85027

== ENCOUNTER 2024-08-19 08:48 | Outpatient (POV) | payer BC, SELFPAY | END 2024-08-19 23:59 | disposition home or self-care (01) | LOC: SC 08:48 | PROVIDERS: Visit Provider Student in an Organized Health Care Education/Training Program | DX: Z00.00 Encounter for general adult medical examination without abnormal findings (principal) ==

== ENCOUNTER 2025-07-13 07:26 | Outpatient (CLI) | payer BC, SELFPAY ==
--- OUTSIDE RECORDS SUMMARY | 2024-10-14 10:15 | XMS_ITS ---
Author Organization [facility] Address [address] [id number] Care Team Providers Care Market Consultant Name Role Phone Lauren Pradhan Primary Care Provider Luis E Rogers Unavailable [phone] Allergies Allergen (clinical drug ingredient) Drug/Non Drug Allergy documented on EMR Reaction Allergy Type Onset Date Status lisinopril Lisinopril Unknown Drug Allergy Activ e Results Component Value Reference Range Notes Glycohemoglobin A1c (in hous e) Reviewed date:10/18/2024 08:13:51 AM Interpretation:6.1 Performing Lab: Notes/Report: 6.1 glycohemoglobin 6.1% 5 - 6.5 % P-Comprehensive Metabolic Pa yohan (CMP) Reviewed date:10/18/2024 08:13:51 AM Interpretation:Cl 109, gluc 106, creat 1.39 Performing Lab: Notes/Report: Test performed by [facility], [address] , [address], [place] [address] Jhony Dangelo MD, [employer] Inserter CLIA: [id number] Sodium 145 135-145 mmol/L Potassium 4.1 3.5-5.3 mmol/L Chloride 109 97-108 mmol/L CO2 23 22-32 mmol/L Glucose 106 65-99 mg/dL BUN 17 6-20 mg/dL Creatinine 1.39 0.70-1.30 mg/dL Calcium 9.8 8.6-10.4 mg/dL eGFR by Creatinine 66 >59 mL/min/1.73m2 Protein 6.8 6.0-8.3 g/dL Albumin 4.5 3.5-5.3 g/dL Alkaline Phosphatase 71 40-129 IU/L ALT (SGPT) 29 <5-55 IU/L AST (SGOT) 22 <5-46 IU/L Bilirubin, Total 0.3 <0.2-1.2 mg/dL A/G Ratio 2.0 1.1-2.5 P-Lipid Panel Reviewed date:10/18/2024 08:13:51 AM Interpretation:chol 236, trig 603, hdl 35, chol/hdl 6.74, non-hdl 201 Performing Lab: Notes/Report: Test performed by [facility] [address] [place] [address] , [address], [place] [address] Jhony Dangelo MD, Carbon Rod Inserter CLIA: [id number] Cholesterol 236 <200 mg/dL Triglycerides 603 <150 mg/dL HDL Cholesterol 35 >39 mg/dL Cholesterol / HDL Ratio 6.74 0.00-4.99 Ratio Non-HDL Cholesterol 201 <130 mg/dL LDL Cholesterol (Calculation) SEE COMMENT <130 mg/dL LDL Cholesterol Levels* Less than 100 mg/dL Optimal 100 to 129 mg/dL Near Optimal/ Above Optimal 130 to 159 mg/dL Borderline High 160 to 189 mg/dL High 190 mg/dL and above Very High * Categories as recommended by the 2004 ATPIII guidelines Unable to calculate due to Triglycerides >400 mg/dL LDL/HDL Ratio SEE COMMENT <3.3 Ratio Unable to calculate due to Triglycerides >400 mg/dL LDL Cholesterol Patient History Test Date: 10/14/2024 LDL Results: SEE COMMENT Units: mg/dL % Change: - P-Phosphorus Reviewed date:10/18/2024 08:13:51 AM Interpretation:Normal Performing Lab: Notes/Report: Test performed by [facility] , [facility], [place] [address] Jhony Dangelo MD, [employer] Inserter CLIA: [id number] Phosphorus 3.1 2.5-4.5 mg/dL P-TSH reflex to FT4 Reviewed date:10/18/2024 08:13:51 AM Interpretation:Normal Performing Lab: Notes/Report: Test performed by [facility] [address] , [place] [address] Jhony Dangelo MD, Carbon Rod Inserter CLIA: [id number] TSH reflex to FT4 2.76 0.43-5.25 mU/L P-Microalbumin/Creatinine, R andom Urine Sample Reviewed date:10/18/2024 08:13:51 AM Interpretation:alb/creat 3186 Performing Lab: Notes/Report: Test performed by [facility] [address] , [address], [place] [address] Jhony Dangelo MD, [employer] Rod Inserter CLIA: [id number] Albumin/Creatinine Ratio, Urine 3186 0-30 ug/mg Microalbumin, Urine, Random 267.3 Creatinine, Urine 83.9 P-Vitamin D 25-Hydroxy Reviewed date:10/18/2024 08:13:51 AM Interpretation: Performing Lab: Notes/Report: Test performed by [facility] , [place] [address] Jhony Dangelo MD, [employer] Inserter CLIA: [id number] Vitamin D 25-Hydroxy 15.9 30.0-100.0 ng/mL Interpretation of Vitamin D 25 OH: < 20 ng/mL - Deficiency 20 - 29 ng/mL - Insufficiency 30 - 100 ng/mL - Sufficiency > 100 ng/mL - Super-therapeutic- toxicity may occur above this level. Clinical correlation required. REASON FOR VISIT check up and refills Medications Medication SIG (Take, Route, Frequency, Duration) Notes Start Date End Date Status Fenofibrate 145 MG 1 tab(s) orally once a day; Duration: 90 days Active Jardiance 10 MG 1 tablet Orally Once a day; Duration: 90 days 10/14/2024 Active Aspirin 81 MG 1 tab(s) orally once a day Active D3-50 1.25 MG (94317 UT) 1 cap(s) orally once a week; Duration: 90 days Active Zetia 10 MG 1 tab(s) orally once a day; Duration: 90 days Active hydroCHLOROthiazide 12.5 MG 1 capsule in the morning Orally Once a day; Duration: 90 days Active Rosuvastatin Calcium 40 MG TAKE 1 TABLET BY MOUTH DAILY; Duration: 90 days Active Carvedilol 12.5 MG 1 tab(s) orally 2 ti mes a day; Duration: 90 days Active Valsartan 320 MG 1 tab(s) orally once a day; Duration: 90 days Active Vital Signs Blood pressure systolic 170 mm Hg 10/14/20 24 Blood pressure diastolic 110 mm Hg 024 Heart Rate 105 /min 10/14/2024 Height 69 in 10/14/2024 Weight 284.8 lbs 10/14/2024 BMI 42.05 kg/m2 10/14/2024 Encounters Encounter Location Date Provider Diagnosis [facility] [address] [id number] 10/14/2024 Luis E Rogers Essential hypertensi on I10 ; Mixed hyperlipidemia E78.2 ; Acquired hypertriglyceridemia E78.1 ; Vitamin D deficiency E55.9 ; IFG (impaired fasting glucose) R73.01 and Stage 3a chronic kidney disease (CKD) N18.31 Assessments Encounter Date Diagnosis (ICD Code) Assessment Notes Treatment Notes Treatment Clinical Notes Section Notes 10/14/2024 Essential hypertensi on (ICD-10 - I10) 10/14/2024 Mixed hyperlipidemia (ICD-10 - E78.2) 10/14/2024 Acquired hypertriglyceridemia (ICD-10 - E78.1) 10/14/2024 Vitamin D deficiency (ICD-10 - E55.9) 10/14/2024 IFG (impaired fastin g glucose) (ICD-10 - R73.01) 10/14/2024 Stage 3a chronic kid black disease (CKD) (ICD-10 - N18.31) Plan Of Treatment Medication Medication Name Sig Start Date Stop Date Notes Fenofibrate 145 MG 1 tab(s) orally once a day; Duration: 90 days Jardiance 10 MG 1 tablet Orally Once a day; Duration: 90 days 10/14/2024 Zetia 10 MG 1 tab(s) orally once a day; Duration: 90 days hydroCHLOROthiazide 12.5 MG 1 capsule in the morning Orally Once a day; Duration: 90 days Rosuvastatin Calcium 40 MG TAKE 1 TABLET BY MOUTH DAILY; Duration: 90 days Carvedilol 12.5 MG 1 tab(s) orally 2 ti mes a day; Duration: 90 days Valsartan 320 MG 1 tab(s) orally once a day; Duration: 90 days Next Appt Details Follow Up: 6 Months, Reason: Progress Notes * Morris DONISDOB: [birth year] (40 yo M)Acc No.[id number]:10/14/2024 Progress Notes Patient: Morris SHARMA Provider: Mago Rogers M.D. :1985 A ge:39 Y S ex:Male Date:10/14/2024 Address:[address] [place] [address] Pcp:Lauren Pradhan Subjective: * Chief Complaints: * 1 . Check up and refills. * HPI: C ardiology: 39 year old male presents with c/o Blood Pressure Elevated P t here to f/u on hypertension, states he is doing well and does not have any concerns. c/o Hyperlipidemia P t is not fasting today. * ROS: D ERMATOLOGY: no R esteban. n o H jessy. G ASTROENTEROLOGY: no N ausea. n o V omiting. U ROLOGY: no D ifficulty urinating. n o B lood in urine. * Medical History: C oronary Artery Disease, Chronic Kidney Disease Stage 2 - Dx. December 2018 (N18.2), Hyperlipidemia, Hypertension, Hypertriglyceridemia, Impaired fasting glucose, Vitamin D deficiency. * Surgical History: H eart Cath, Stent x 2 2009, Tonsillectomy 2004, Kidney Biopsy - Negative 10/2020. * Hospitalization/Major Diagno stic Procedure: Filemon gaston [facility] 06/12/2018. * Family History: F ather: alive 67 yrs. M other: alive 68 yrs. 1 sister(s) - healthy. . * Social History: C URRENT TOBACCO USE S moking Status: Patient does NOT smoke. C affeine: yes, frequency:pop, qd. Home smoke detector use: yes. Marital Status: Single. Alcohol: No. * Medications: T aking Aspirin 81 MG Tablet Delayed Release 1 tab(s) orally once a day , Taking D3-50 1.25 MG (27114 UT) Capsule 1 cap(s) orally once a week , Taking Valsartan 320 MG Tablet 1 tab(s) orally once a day , Taking Carvedilol 12.5 MG Tablet 1 tab(s) orally 2 times a day , Taking Fenofibrate 145 MG Tablet 1 tab(s) orally once a day , Taking hydroCHLOROthiazide 12.5 MG Capsule 1 capsule in the morning Orally Once a day , Taking Zetia 10 MG Tablet 1 tab(s) orally once a day , Taking Rosuvastatin Calcium 40 MG Tablet TAKE 1 TABLET BY MOUTH DAILY , Medication List reviewed and reconciled with the patient * Allergies: L isinopril. Objective: * Vitals: W t:284.8, Temp:98.1, BP:170/110, HR:105, Nurse:nayan, Ht: 69, Repeat BP:142/90, BMI:42.05. * Examination: C ardiology: General Appearance: p leasant, NAD, BMI 40.16. H eart sounds: R RR, normal S1, S2. L ungs: c lear, no rales or wheezes. E xtremities: n o leg edema. Assessment: * Assessment: 1. E ssential hypertension - I10 (Primary) 2 . M ixed hyperlipidemia - E78.2 3 . A cquired hypertriglyceridemia - E78.1 4 . V itamin D deficiency - E55.9 5 . I FG (impaired fasting glucose) - R73.01 6 . S tage 3a chronic kidney disease (CKD) - N18.31 Plan: * Treatment: Value Reference Range A /G Ratio 2.0 1.1-2.5 - * A lbumin 4.5 3.5-5.3 - g/dL * A lkaline Phosphatase 71 40-129 - IU/L * A LT (SGPT) 29 <5-55 - IU/L * A ST (SGOT) 22 <5-46 - IU/L * B ilirubin, Total 0.3 <0.2-1.2 - mg/dL * B UN 17 6-20 - mg/dL * C alcium 9.8 8.6-10.4 - mg/dL * C hloride 109 H 97-108 - mmol/L * C O2 23 22-32 - mmol/L * C reatinine 1.39 H 0.70-1.30 - mg/dL * G lucose 106 H 65-99 - mg/dL * P otassium 4.1 3.5-5.3 - mmol/L * S odium 145 135-145 - mmol/L * P rotein 6.8 6.0-8.3 - g/dL * e GFR by Creatinine 66 >59 - mL/min/1.73m2 * Carmelina Irby 10/18/2024 8:0 7:48 AM >See phone encounter ?LAB: P-Microalbumin/Creatinine, Random Urine Sample (Collection Date & Time - 10/14/2024 01:41 PM)?alb/creat 3186* Value Reference Range A lbumin/Creatinine Ratio, Urine 3186 H 0-30 - ug /mg * C reatinine, Urine 83.9 - mg/dL * M icroalbumin, Urine, Random 267.3 - mg/dL * Carmelina Irby 10/18/2024 8:0 7:48 AM >See phone encounter 2.?Mixed hyperlipidemia? Refill Rosuvastatin Calcium Tablet, 40 MG, TAKE 1 TABLET BY MOUTH DAILY, 90 days, 90 Tablet, Refills 1;?Refill Zetia Tablet, 10 MG, 1 tab(s), orally, once a day, 90 days, 90, Refills 1.?LAB: P-Comprehensive Metabolic Panel (CMP) (Collection Date & Time - 10/14/2024 01:41 PM)?Cl 109, gluc 106, creat 1.39* Value Reference Range A /G Ratio 2.0 1.1-2.5 - * A lbumin 4.5 3.5-5.3 - g/dL * A lkaline Phosphatase 71 40-129 - IU/L * A LT (SGPT) 29 <5-55 - IU/L * A ST (SGOT) 22 <5-46 - IU/L * B ilirubin, Total 0.3 <0.2-1.2 - mg/dL * B UN 17 6-20 - mg/dL * C alcium 9.8 8.6-10.4 - mg/dL * C hloride 109 H 97-108 - mmol/L * C O2 23 22-32 - mmol/L * C reatinine 1.39 H 0.70-1.30 - mg/dL * G lucose 106 H 65-99 - mg/dL * P otassium 4.1 3.5-5.3 - mmol/L * S odium 145 135-145 - mmol/L * P rotein 6.8 6.0-8.3 - g/dL * e GFR by Creatinine 66 >59 - mL/min/1.73m2 * Carmelina Irby 10/18/2024 8:0 7:48 AM >See phone encounter ?LAB: P-Lipid Panel (Collection Date & Time - 10/14/2024 01:41 PM)?chol 236, trig 603, hdl 35, chol/hdl 6.74, non-hdl 201* Value Reference Range C holesterol / HDL Ratio 6.74 H 0.00-4.99 - Ratio * C holesterol 236 H <200 - mg/dL * H DL Cholesterol 35 L >39 - mg/dL * L DL Cholesterol (Calculation) SEE COMMENT <130 - mg/d L * L DL/HDL Ratio SEE COMMENT <3.3 - Ratio * N on-HDL Cholesterol 201 H <130 - mg/dL * T riglycerides 603 H <150 - mg/dL * Carmelina Irby 10/18/2024 8:0 7:48 AM >See phone encounter ?LAB: P-TSH reflex to FT4 (Collection Date & Time - 10/14/2024 01:41 PM)? Normal* Value Reference Range T SH reflex to FT4 2.76 0.43-5.25 - mU/L * Carmelina Irby 10/18/2024 8:0 7:48 AM >See phone encounter 3.?Acquired hypertriglyceridemia? Refill Fenofibrate Tablet, 145 MG, 1 tab(s), orally, once a day, 90 days, 90, Refills 1.??4.?Vitamin D deficiency?LAB: P-Vitamin D 25-Hydroxy (Collection Date & Time - 10/14/2024 01:41 PM) * Value Reference Range V itamin D 25-Hydroxy 15.9 L 30.0-100.0 - ng/mL * Carmelina Irby 10/18/2024 8:0 7:48 AM >See phone encounter 5.?IFG (impaired fasting glucose)?LAB: Glycohemoglobin A1c (in house) (Collection Date & Time - 10/14/2024)? 6.1* Value Reference Range g lycohemoglobin 6.1% 5 - 6.5 % * Demetria Spence 10/14/2024 4:04:5 0 PM > Carmelina Irby 10/18/2024 8:07:48 AM >See phone encounter 6.?Stage 3a chronic kidney disease (CKD)? Start Jardiance Tablet, 10 MG, 1 tablet, Orally, Once a day, 90 days, 90 Tablet, Refills 1.?LAB: P-Phosphorus (Collection Date & Time - 10/14/2024 01:41 PM)?Normal* Value Reference Range P hosphorus 3.1 2.5-4.5 - mg/dL * Carmelina Irby 10/18/2024 8:0 7:48 AM >See phone encounter * Procedure Codes: 8 3036 GLYCATED HEMOGLOBIN TEST, Modifiers: QW * Follow Up: 6 Months * Images: Billing Information: * Visit Code: 90062 Office Visit, Est Pt., Level 4. * Procedure Codes: 33207 GLYCATED HEMOGLOBIN TEST. Modifiers: QW * Electronic signature of Lorena Rogers MD on 07/13/2025 at 07:29 AM EDT Sign off status: Pending * Provider: Mago Rogers M.D. Date: 12/15/2023 Generated for Carolyn barrera/Randy/eTransmitting on: 0 07/13/2025 07:29 AM EDT History and Physical Notes * HPI (History of Present Illness) Category Sub-Category Detail Notes Category Not es Cardiology Blood Pressure Elevated Pt here to f/u on hypertension, states he is doing well and does not have any concerns Hyperlipidemia Pt is not fasting to day Examination Category Sub-Category Detail Notes Category Not es Cardiology Lungs: clear, no rales or wheezes Heart sounds: RRR, normal S1, S2 Extremities: no leg edema General Appearance: pleasant, NAD, BMI 4 0.16
--- OUTSIDE RECORDS SUMMARY | 2025-05-04 06:15 | XMS_ITS ---
Author Organization [facility] Address [address] [id number] Care Team Providers Care Enterprise Analyst Name Role Phone Lauren Pradhan Primary Care Provider [phone] Luis E Rogers Unavailable [phone] Allergies Allergen (clinical drug ingredient) Drug/Non Drug Allergy documented on EMR Reaction Allergy Type Onset Date Status lisinopril Lisinopril Unknown Drug Allergy Activ e REASON FOR VISIT 6 month check Medications Medication SIG (Take, Route, Frequency, Duration) Notes Start Date End Date Status Valsartan 320 MG 1 tab(s) orally once a day; Duration: 90 days Active Carvedilol 12.5 MG 1 tab(s) orally 2 ti mes a day; Duration: 90 days Active hydroCHLOROthiazide 12.5 MG 1 capsule in the morning Orally Once a day; Duration: 90 days Active D3-50 1.25 MG (60421 UT) 1 cap(s) orally once a week; Duration: 90 days Active Aspirin 81 MG 1 tab(s) orally once a day Active Icosapent Ethyl 1 GM 2 capsules with oly ls Orally Twice a day; Duration: 90 days 10/19/2024 Active Fenofibrate 145 MG 1 tab(s) orally once a day; Duration: 90 days Active Zetia 10 MG 1 tab(s) orally once a day; Duration: 90 days Active Rosuvastatin Calcium 40 MG TAKE 1 TABLET BY MOUTH DAILY; Duration: 90 days Active Jardiance 10 MG 1 tablet Orally Once a day; Duration: 90 days 10/14/2024 Active Problems Problem Type SNOMED Code ICD Code Onset Dates Problem Status W/U Status Risk Notes Problem Chronic renal failure syndrome (21650515) Chronic kidney disease, unspecified CKD stage (N18.9) Active confirmed Vital Signs Blood pressure systolic 144 mm Hg 05/04/20 25 Blood pressure diastolic 90 mm Hg 025 Heart Rate 90 /min 05/04/2025 Height 69 in 05/04/2025 Weight 283 lbs 05/04/2025 BMI 41.79 kg/m2 05/04/2025 Encounters Encounter Location Date Provider Diagnosis [facility] [address] [place], [place] [id number] 05/04/2025 Luis E Ken Essential hypertensi on I10 ; Acquired hypertriglyceridemia E78.1 ; Vitamin D deficiency E55.9 ; Mixed hyperlipidemia E78.2 ; IFG (impaired fasting glucose) R73.01 ; Morbid obesity E66.01 and Chronic kidney disease, unspecified CKD stage N18.9 Assessments Encounter Date Diagnosis (ICD Code) Assessment Notes Treatment Notes Treatment Clinical Notes Section Notes 05/04/2025 Essential hypertensi on (ICD-10 - I10) 05/04/2025 Acquired hypertriglyceridemia (ICD-10 - E78.1) 05/04/2025 Vitamin D deficiency (ICD-10 - E55.9) 05/04/2025 Mixed hyperlipidemia (ICD-10 - E78.2) 05/04/2025 IFG (impaired fastin g glucose) (ICD-10 - R73.01) 05/04/2025 Morbid obesity (ICD- 10 - E66.01) 05/04/2025 Chronic kidney disea se, unspecified CKD stage (ICD-10 - N18.9) 05/04/2025 Other Patient will return for the following fasting labs: CMP, Lipid, urine microalbumin /Creat and Vit D Plan Of Treatment Medication Medication Name Sig Start Date Stop Date Notes Valsartan 320 MG 1 tab(s) orally once a day; Duration: 90 days Carvedilol 12.5 MG 1 tab(s) orally 2 ti mes a day; Duration: 90 days hydroCHLOROthiazide 12.5 MG 1 capsule in the morning Orally Once a day; Duration: 90 days D3-50 1.25 MG (20524 UT) 1 cap(s) orally once a week; Duration: 90 days Icosapent Ethyl 1 GM 2 capsules with oly ls Orally Twice a day; Duration: 90 days 10/19/2024 Fenofibrate 145 MG 1 tab(s) orally once a day; Duration: 90 days Zetia 10 MG 1 tab(s) orally once a day; Duration: 90 days Rosuvastatin Calcium 40 MG TAKE 1 TABLET BY MOUTH DAILY; Duration: 90 days Jardiance 10 MG 1 tablet Orally Once a day; Duration: 90 days 10/14/2024 Treatment Notes Assessment Notes Other Patient will return for the following fasting labs: CMP, Lipid, urine microalbumin/Creat and Vit D Next Appt Details Follow Up: 6 Months, Reason: Progress Notes * Morris DONISDOB: 6 (40 yo M)Acc No.[id number]:05/04/2025 Progress Notes Patient: Morris SHARMA Provider: Mago Rogers M.D. :1985 A ge:39 Y S ex:Male Date:05/04/2025 Address:[address] [place] [address] Pcp:Lauren Pradhan Subjective: * Chief Complaints: * 1 . 6 month check. * HPI: C ardiology: 39 year old male presents with c/o Blood Pressure Elevated P t here for 6 mo f/u on hypertension. Pt states he is doing well and does not have any concerns?. c/o Hyperlipidemia P t is fasting today. * ROS: D ERMATOLOGY: no [...] 10/2020. * Hospitalization/Major Diagno stic Procedure: Filemon [facility]lier- [facility] 06/12/2018. * Family History: F ather: alive 68 yrs. M other: alive 69 yrs. 1 sister(s) - healthy. . * Social History: C URRENT TOBACCO USE: No . C affeine: yes, frequency:pop, qd. Home smoke detector use: yes. Marital Status: Single. Alcohol: No. * Medications: T aking Aspirin 81 MG Tablet Delayed Release 1 tab(s) orally once a day , Taking hydroCHLOROthiazide 12.5 MG Capsule 1 capsule in the morning Orally Once a day , Taking Carvedilol 12.5 MG Tablet 1 tab(s) orally 2 times a day , Taking Valsartan 320 MG Tablet 1 tab(s) orally once a day , Taking Rosuvastatin Calcium 40 MG Tablet TAKE 1 TABLET BY MOUTH DAILY , Taking Zetia 10 MG Tablet 1 tab(s) orally once a day , Taking Fenofibrate 145 MG Tablet 1 tab(s) orally once a day , Taking D3-50 1.25 MG (27924 UT) Capsule 1 cap(s) orally once a week , Taking Icosapent Ethyl 1 GM Capsule 2 capsules with meals Orally Twice a day , Not-Taking Jardiance 10 MG Tablet 1 tablet Orally Once a day , Medication List reviewed and reconciled with the patient * Allergies: L isinopril. Objective: * Vitals: W t: 283, Temp: 98.0, BP: 144/90, HR: 90, Nurse: nayan, Ht: 69, BMI:41.79. * Examination: C ardiology: General Appearance: p leasant, NAD, BMI 40.16. H eart sounds: R RR, normal S1, S2. L ungs: c lear, no rales or wheezes. E xtremities: n o leg edema. Assessment: * Assessment: 1. E ssential hypertension - I10 (Primary) 2 . A cquired hypertriglyceridemia - E78.1 3 . V itamin D deficiency - E55.9 4 . M ixed hyperlipidemia - E78.2 5 . I FG (impaired fasting glucose) - R73.01 6 . M orbid obesity - E66.01 7 . C hronic kidney disease, unspecified CKD stage - N18.9 Plan: * Treatment: 2. V itamin D deficiency Refill D3-50 Capsule, 1.25 MG (08735 UT), 1 cap(s), orally, once a week, 90 days, 13, Refills 1.? 3. M ixed hyperlipidemia Refill Rosuvastatin Calcium Tablet, 40 MG, TAKE 1 TABLET BY MOUTH DAILY, 90 days, 90, Refills 1;?Refill Zetia Tablet, 10 MG, 1 tab(s), orally, once a day, 90 days, 90, Refills 1; R efill Fenofibrate Tablet, 145 MG, 1 tab(s), orally, once a day, 90 days, 90, Refills 1; R efill Icosapent Ethyl Capsule, 1 GM, 2 capsules with meals, Orally, Twice a day, 90 days, 360, Refills 1. ? 4. C hronic kidney disease, unspecified CKD stage Refill Jardiance Tablet, 10 MG, 1 tablet, Orally, Once a day, 90 days, 90, Refills 1. 5. O thers Notes: Patient will return for the following fasting labs: CMP, Lipid, urine microalbumin/Creat and Vit D * Procedure Codes: 1 036F TOBACCO NON-USER * Follow Up: 6 Months * Images: Billing Information: * Visit Code: 27908 Office Visit, Est Pt., Level 4. * Procedure Codes: 1036F TOBACCO NON-USER. * Electronic signature of Lorena Rogers MD on 07/13/2025 at 07:29 AM EDT Sign off status: Pending * Provider: Mago Rogers M.D. Date: 05/04/2025 Generated for Carolyn barrera/Randy/Bhanu on: 0 07/13/2025 07:29 AM EDT History and Physical Notes * HPI (History of Present Illness) Category Sub-Category Detail Notes Category Not es Cardiology Blood Pressure Elevated Pt here for 6 mo f/u on hypertension. Pt states he is doing well and does not have any concerns Hyperlipidemia Pt is fasting today Examination Category Sub-Category Detail Notes Category Not es Cardiology Lungs: clear, no rales or wheezes Heart sounds: RRR, normal S1, S2 Extremities: no leg edema General Appearance: pleasant, NAD, BMI 4 0.16
--- OUTSIDE RECORDS SUMMARY | 2025-07-07 12:00 | XMS_ITS | Encounter Summary ---
Author Organization [facility] Address [address] [place] [address] Care Team Providers Care Pct Name Role Phone Luis E Rogers MD Primary Care Provider + [phone] Reason for Referral * Consultation (Routine) - Authorized Specialty Diagnoses / Procedures Referred By Haider reed Referred To Contact Diagnoses IgA nephropathy Poncho Warren MD [address] [place] [address] Phone: tel: fax: Referral ID Status Reason Start Date Expiration Date V isits Requested Visits Authorized [id number] Authorized 07/07/2025 01/06/2027 1 1 Reason for Visit * Reason Comments Follow-up Pt is a 40 year old male that presents to the clinic on this date for a follow up for FSGS. Pt denies pain at the current moment. Pt denies complaints or concerns at the current moment. Encounter Details Date Type Department Care Team ([facility] st Contact Info) Description 07/07/2025 12:00 PM EDT Office Visit [facility] [address] [place] [phone] Poncho Warren MD [address] [place] [address] IgA nephropathy (Primary Dx); Stage 3a chronic kidney disease (CMS/HCC); Chronic kidney disease-mineral and bone disorder (CKD-MBD); Persistent proteinuria; Hypertensive chronic kidney disease with stage 1 through stage 4 chronic kidney disease, or unspecified chronic kidney disease; Solitary kidney, congenital; FSGS (focal segmental glomerulosclerosis) Social History Tobacco Use Types Packs/Day Years Used Date Smoking Tobacco: Never Smokeless Tobacco: Never Tobacco Cessation:Counseling Given: Not Answered Sex and Gender Information Value Date Recorded Sex Assigned at Not on file Legal Sex Male 7:05 PM EDT Gender Identity Not on file Sexual Orientation Not on file documented as of this encounter Last Filed Vital Signs Vital Sign Reading Time Taken Comments Blood Pressure 137/87 07/07/2025 11:35 AM EDT Pulse 77 07/07/2025 11:35 AM EDT Temperature - - Respiratory Rate 18 07/07/2025 11:35 AM EDT Oxygen Saturation 98% 07/07/2025 11:35 AM EDT Inhaled Oxygen Concentration - - Weight 126 kg (277 lb) 07/07/2025 11:35 AM EDT Height 177.8 cm (5' 10 ) 07/07/2025 11:35 AM EDT Body Mass Index 39.75 07/07/2025 11:35 AM EDT documented in this encounter Miscellaneous Notes * Progress Notes - Poncho Warren MD - 07/07/2025 12:00 PM EDT Nephrology Outpatient Clinic Established patient visit Glomerulonephritis clinic [facility] in [place], [place] Patient: Morris Donis Primary Care Provider: Luis E Rogers MD Referring Provider: Luis E Rogers MD Reason for consult: CKD due t FSGS follow up HPI/Subjective Morris Donis is a 40 y.o. male with a PMH of solitary kidney, s/p biopsy in 2019 which showed FSGS and likely some underlying IgA presents for follow up today. 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 No major changes in health. Was able to gt Farxiga, but did get Jardiance through PCP has been on for 2-3 months and tolerating well. ROS Review of Systems No dyspnea, no urinary symptoms +dry skin on leg History: Past Medical History: Diagnosis Date Conversions - Other Coronary Artery Disease Conversions - Other Vitamin D Deficiency Personal history of other endocrine, nutritional and metabolic disease History of hyperlipidemia Pure hyperglyceridemia Hypertriglyceridemia Patient Active Problem List Diagnosis CKD (chronic kidney disease) stage 2, GFR 60-89 ml/min FSGS (focal segmental glomerulosclerosis) Hypertension Microscopic hematuria Proteinuria Sleep apnea Solitary kidney, congenital Stage 3a chronic kidney disease (CMS/HCC) Hypertensive chronic kidney disease with stage 1 through stage 4 chronic kidney disease, or unspecified chronic kidney disease Mixed hyperlipidemia Chronic kidney disease-mineral and bone disorder (CKD-MBD) Severe obesity (BMI 35.0-39.9) with comorbidity (CMS/HCC) Past Surgical History: Procedure Laterality Date CARDIAC CATHETERIZATION N/A cardiac catheterization from [facility] CATH STENT PLACEMENT/ CATH PLACEMENT OF STENT N/A Cath Stent Placement from [facility] TONSILLECTOMY N/A Tonsillectomy from [employer] Family History Problem Relation Name Age of Onset Cardiac disorder Father Hypertension Father Hyperlipidemia Mother Hyperlipidemia Father Social History Socioeconomic History Marital status: Spouse name: Not on file Number of children: Not on file Years of education: Not on file Highest education level: Not on file Occupational History Not on file Tobacco Use Smoking status: Never Smokeless tobacco: Never Substance and Sexual Activity Alcohol use: Not on file Drug use: Not on file Sexual activity: Not on file Other Topics Concern Not on file Social History Narrative Not on file Social Drivers of Health Financial Resource Strain: Not on file Food Insecurity: Not on file Transportation Needs: Not on file Physical Activity: Not on file Stress: Not on file Social Connections: Not on file Intimate Partner Violence: Not on file Housing Stability: Not on file Allergies Allergen Reactions Lisinopril Cough Medications: Current Medications: Current Outpatient Medications Medication Instructions Aspirin Buf,FlUeen-RpCudl-VuN, 81 MG tablet No dose, route, or frequency recorded. carvedilol (Coreg) 12.5 MG tablet No dose, route, or frequency recorded. cholecalciferol (VITAMIN D-3) 2,000 Units, Oral, Daily dapagliflozin (FARXIGA) 10 mg, Oral, Daily empagliflozin (JARDIANCE) 10 mg, Daily ezetimibe (Zetia) 10 MG tablet No dose, route, or frequency recorded. fenofibrate (Tricor) 145 MG tablet TAKE 1 TABLET DAILY. hydroCHLOROthiazide (Microzide) 12.5 MG capsule rosuvastatin (Crestor) 40 MG tablet No dose, route, or frequency recorded. valsartan (DIOVAN) 320 mg, Oral, Daily Objective Visit Vitals BP 137/87 (BP Location: Left arm, Patient Position: Sitting, BP Cuff Size: Large adult) Pulse 77 Resp 18 Ht 1.778 m (5' 10 ) Wt 126 kg (277 lb) SpO2 98% BMI 39.75 kg/m?? Smoking Status Never BSA 2.49 m?? Heart Rate: [77] 77 Resp: [18] 18 BP: (137)/(87) 137/87 Physical Exam: Physical Exam Constitutional: General: He is not in acute distress. Appearance: He is obese. He is not ill-appearing. HENT: Head: Normocephalic and atraumatic. Right Ear: External ear normal. Left Ear: External ear normal. Mouth/Throat: Mouth: Mucous membranes are moist. Pharynx: Oropharynx is clear. Eyes: Conjunctiva/sclera: Conjunctivae normal. Pupils: Pupils are equal, round, and reactive to light. Cardiovascular: Rate and Rhythm: Normal rate. Pulmonary: Effort: Pulmonary effort is normal. Abdominal: General: Abdomen is flat. Musculoskeletal: General: Normal range of motion. Right lower leg: No edema. Left lower leg: No edema. Skin: General: Skin is warm and dry. Neurological: General: No focal deficit present. Mental Status: He is alert and oriented to person, place, and time. Mental status is at baseline. Psychiatric: Mood and Affect: Mood normal. Behavior: Behavior normal. Thought Content: Thought content normal. Judgment: Judgment normal. Laboratory: LAB RESULTS Renal Panel: Lab Results Component Value Date NA 141 10/30/2020 K 4.1 10/30/2020 CL 109 (H) 10/30/2020 CO2 24 10/30/2020 BUN 15 10/30/2020 CREATININE 1.30 10/30/2020 EGFR >60 10/30/2020 EGFR >60 10/30/2020 CA 9.6 10/30/2020 MBD: Lab Results Component Value Date CA 9.6 10/30/2020 VITAMIN D 25 No results found for: VITD25 VITAMIN D 1,25 No results found for: VITD32 PTHRP No results found for: PLASMA Paraproteinemia Labs: No results found for: SPEP , KAPPALAMBDA Nutritional: No results found for: PREALBUMIN , VITD25 Endocrine profile: No results found for: TESTOSTERONE , TESTOST , FSH , LH , PROLACTIN , TSH , H5WNHPO , FREET4 , CORTISOL Urine studies: No results found for: CAR , CAUR , CALCIUMUR , PHOSUR , UETG69PPW , VTNQT30WRF , CREATUR CBC: Lab Results Component Value Date WBC 5.03 10/30/2020 RBC 4.98 10/30/2020 HGB 14.5 10/30/2020 HCT 41.8 10/30/2020 PLT 173 10/30/2020 MCV 88 10/30/2020 MCH 30.3 10/30/2020 MCHC 34.4 10/30/2020 RDW 12.9 10/30/2020 Iron studies: No results found for: FERRITIN , IRON , IRONSAT , TIBC Bone Turnover Markers: No results found for: BSAP , CTELOX , NTELOPEPTS , OSTEOCALCIN Labs from [facility] 08/17/24 Creatinine 1.3 Protienuria urine protein 1222/193 creatinine = 6.3 g/g Imaging: Solitary kidney Impression & Plan: CKD 3 w/ Solitary kidney Secondary FSGS Nephrotic range proteinuria Microscopic hematuria Baseline cr: 1.3-1.5 Most recent creatinine: 1.30 w/ eGFR 62 Urine: + Proteinuria 24 hr urine 4.3 grams/day UPC most recently at 6.3 g/g (1222 pr/193 cr) Risk factor reduciton to reduce progression of disease -BP control goal <130/80 -Lifestyle management: Goal BMI <30, sodium restriction <2g/day, try to get 150 minutes ofm oderate exercise per week (walking counts) -RAAS blockade: valsartan 320mg daily -SGLT2 inhibitor: [facility] biopsy 2019 [facility]ID[facility], [facility], NEEDLE CORE BIOPSY: - MORPHOLOGIC FINDINGS CONSISTENT WITH FOCAL SEGMENTAL GLOMERULOSCLEROSIS (FSGS) NOS TYPE. - IGA DOMINANT MESANGIAL ELECTRON DENSE DEPOSITS SUGGESTIVE OF IGA NEPHROPATHY. - MILD INTERSTITIAL FOCAL LYMPHOCYTIC INFLAMMATORY INFILTRATE. - PARENCHYMAL CHRONIC CHANGES: GLOBAL GLOMERULOSCLEROSIS INVOLVING THREE OUT OF TWENTY THREE GLOMERULI (3/23, 13%), MILD CORTICAL TUBULAR ATROPHY, MILD INTERSTITIAL FIBROSIS, AND MILD ARTERIOLAR HYALINE NODULAR SCLEROSIS. #HTN in CKD stage 1-4 -on hydrochlorothiazide 12.5mg, carvedilol 12.5mg BID, and valsartan 320mg #CKD bone and mineral disease #Vitamin D Deficiency -Vit d level 23.1 - goal >30; currently on cholecaliferol 2,000 units dily #HLD -on ezetimibe and fenofibrate and rosuvastatin #Anemia in CKD Recommendations and plan: -Checking Labs this week. Now on Jardiance insurance did not preauthorize farxiga -Continue current anti-hypertensivess -IgA and FSGS ---Not on IS: can reconsider now that there are more options for IgA, but may require repeat biopsy? ---Currently is on CKD supportive care with SGLT2 inh (Jardiance 10mg) and ARB (Valsartan 320mg) -continue vitamin d -low sodium diet RTC in 6 months Poncho Warren MD Division of Nephrology [facility] Counseling Documentation: The patient was counseled regarding COUNSELING TOPICS: diagnostic results, prognosis, risks and benefit of treatment options, risk factor reductions, instructions for management, patient and family education, medication changes, diagnostic impressions, Heart healthy diet, regular physical activity and weight control, Avoidance of NSAIDs and other nephrotoxins, and extermination inspector nature of condition. Education provided was verbal counseling.Additional time was spent in care coordination including medical record review. ORDERS PLACED THIS ENCOUNTER Orders Placed This Encounter Procedures Albumin-creatinine ratio, urine, random Standing Status: Future Expected Date: 01/03/2026 Expiration Date: 04/03/2026 Release to patient in [facility]: Immediate Renal Function Panel, Plasma Standing Status: Future Expected Date: 01/03/2026 Expiration Date: 04/03/[facility] W/O Differential Standing Status: Future Expected Date: 01/03/2026 Expiration Date: 04/03/2026 [facility] Protein, Random, Urine with Creatinine Standing Status: Future Expected Date: 01/03/2026 Expiration Date: 04/03/2026 [facility] Urinalysis with reflex microscopic (Culture NOT Included) Standing Status: Future Expected Date: 01/03/2026 Expiration Date: 04/03/2026 [facility] Follow [facility]phrology [facility] specialty clinic [facility] Standing Status: Future Expected Date: 01/04/2026 Expiration Date: 08/06/2026 Referral Priority: Routine Referral Type: Consultation Number of Visits Requested: 1 Problem List Items Addressed This Visit FSGS (focal segmental glomerulosclerosis) Proteinuria Relevant Medications empagliflozin (Jardiance) 10 MG Solitary kidney, congenital Stage 3a chronic kidney disease (CMS/HCC) Relevant Medications empagliflozin (Jardiance) 10 MG Hypertensive chronic kidney disease with stage 1 through stage 4 chronic kidney disease, or unspecified chronic kidney disease Relevant Medications empagliflozin (Jardiance) 10 MG Chronic kidney disease-mineral and bone disorder (CKD-MBD) Relevant Medications empagliflozin (Jardiance) 10 MG Other Visit Diagnoses IgA nephropathy - Primary Relevant Orders Albumin-creatinine ratio, urine, random Renal Function Panel, Plasma CBC W/O Differential Protein, Random, Urine with Creatinine Urinalysis with reflex microscopic (Culture NOT Included) Follow Up Nephrology documented in this encounter Plan of Treatment Upcoming Encounters Date Type Department Care Team (Late st Contact Info) Description 02/02/2026 11:40 AM EDT Office Visit [facility] [address] [place] [address] Poncho Warren MD [address] [place] [phone] Scheduled Orders Name Type Priority Associated Diagnoses Orde r Schedule Albumin-creatinine ratio, urine, random Lab Routine IgA nephropathy Expected: 01/03/2026 (Approximate), Expires: 04/03/2026 Renal Function Panel, Plasma Lab Routine IgA nephropathy Expected: 01/03/2026 (Approximate), Expires: 04/03/2026 CBC W/O Differential Lab Routine IgA nephropathy Expected: 01/03/2026 (Approximate), Expires: 04/03/2026 Protein, Random, Urine with Creatinine Lab Routine IgA nephropathy Expected: 01/03/2026 (Approximate), Expires: 04/03/2026 Urinalysis with reflex microscopic (Culture NOT Included) Lab Routine IgA nephropathy Expected: 01/03/2026 (Approximate), Expires: 04/03/2026 Scheduled Referrals Name Type Priority Associated Diagnoses Orde r Schedule Follow Up Nephrology Outpatient Referral Routine IgA nephropathy Expected: 01/04/2026 (Approximate), Expires: 08/06/2026 documented as of this encounter Visit Diagnoses Diagnosis IgA nephropathy- Primary Nephritis and nephropathy, not specified as acute or chronic, with unspecified pathological lesion in kidney Stage 3a chronic kidney disease (CMS/HCC) Chronic kidney disease-mineral and bone disorder (CKD-MBD) Persistent proteinuria Hypertensive chronic kidney disease with stage 1 through stage 4 chronic kidney disease, or unspecified chronic kidney disease Solitary kidney, congenital 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
--- OUTSIDE RECORDS SUMMARY | 2025-07-13 07:29 | XMS_ITS | Encounter Summary ---
Author Organization Healthcare Address [address] [place] [address] Care Team Providers Care Ship Joiner Name Role Phone Luis E Rogers MD Primary Care Provider + [phone] Encounter Details Date Type Department Care Team (Latest Contact Info) Description 07/07/2025 Travel Social History Tobacco Use Types Packs/Day Years Used Date Smoking Tobacco: Never Smokeless Tobacco: Never Sex and Gender Information Value Date Recorded Sex Assigned at Not on file Legal Sex Male 7:05 PM EDT Gender Identity Not on file Sexual Orientation Not on file documented as of this encounter Plan of Treatment Upcoming Encounters Date Type Department Care Team (Late st Contact Info) Description 02/02/2026 11:40 AM EDT Office Visit [facility] [address] [facility] [address] [place] [address] Poncho Warren MD [address] [place] [address] [phone] documented as of this encounter Visit Diagnoses Not on filedocumented in this encounter Additional Health Concerns Assessment Noted Time A fall risk assessment has been complete d for the patient 10/12/2023 3:18 PM EST A Body Mass Index follow-up plan has been documented for the patient 08/19/2024 9:35 AM EDT documented as of this encounter Care Teams Ship Joiner Relationship Specialty Start Date End Date Luis E Rogers MD [address] [place] [address] PCP - General 03/15/21 documented as of this encounter
--- OUTSIDE RECORDS SUMMARY | 2025-07-13 07:29 | XMS_ITS | Clinical Summary ---
Author Organization [facility] Address [address] [place] [address] Care Team Providers Care Slime Plant Operator Helper Name Role Phone Luis E Rogers MD Primary Care Provider + [phone] Allergies Active Allergy Reactions Criticality Noted Date Comments Lisinopril Cough Low 10/30/2020 Medications Aspirin Buf,CaCarb-MgCar b-MgO, 81 MG tablet 9 Active ezetimibe (Zetia) 10 MG tablet 9 Active fenofibrate (Tricor) 145 MG tablet TAKE 1 TABLET DAILY. 1 Active rosuvastatin (Crestor) 40 MG tablet 9 Active carvedilol (Coreg) 12.5 MG tablet 2 Active hydroCHLOROthiaz linda (Microzide) 12.5 MG capsule 3 Active dapagliflozin (Farxiga) 10 MG tabletIndication s:FSGS (focal segmental glomeruloscleros is),CKD (chronic kidney disease) stage 2, GFR 60-89 ml/min,Persisten t proteinuria,IgA nephropathy Take 1 tablet (10 mg) by mouth 1 (one) time each day. 30 tablet 11 4 Active Additional Information Patient not taking.Reported on 07/07/2025 cholecalciferol (Vitamin D-3) 50 MCG (1999) capsuleIndicatio ns:FSGS (focal segmental glomeruloscleros is),Vitamin D deficiency Take 1 capsule (2,000 Units) by mouth 1 (one) time each day. 90 capsule 3 4 09/19/20 25 Active valsartan (Diovan) 320 MG tabletIndication s:FSGS (focal segmental glomeruloscleros is),Hypertension , unspecified type Take 1 tablet (320 mg) by mouth 1 (one) time each day. 90 tablet 3 4 09/19/20 25 Active empagliflozin (Jardiance) 10 MG Take 1 tablet by mouth daily. Active Active Problems Problem Noted Date Diagnosed Date Hypertensive chronic kidney disease with stage 1 through stage 4 chronic kidney disease, or unspecified chronic kidney disease 08/19/2024 Mixed hyperlipidemia 08/19/2024 Chronic kidney disease-mineral and bone disorder (CKD-MBD) 08/19/2024 Severe obesity (BMI 35.0-39.9) with comorbidity 08/19/2024 Stage 3a chronic kidney disease 04/14/2022 Sleep apnea 04/04/2021 FSGS (focal segmental glomerulosclerosis) 2020 Microscopic hematuria 09/18/2020 CKD (chronic kidney disease) stage 2, GFR 60-89 ml/min 01/14/2019 Solitary kidney, congenital 01/14/2019 Hypertension 12/29/2018 Proteinuria 10/15/2018 Encounters Date Type Department Care Team Description 07/07/2025 12:00 PM EDT Office Visit [facility] [address] [place] [address] Poncho Warren MD IgA nephropathy (Primary Dx); Stage 3a chronic kidney disease (CMS/HCC); Chronic kidney disease-mineral and bone disorder (CKD-MBD); Persistent proteinuria; Hypertensive chronic kidney disease with stage 1 through stage 4 chronic kidney disease, or unspecified chronic kidney disease; Solitary kidney, congenital; FSGS (focal segmental glomerulosclerosis) 07/07/2025 Travel from Last 3 Months Immunizations Immunization Administration Dates Next Due Hep A, Adult 03/18/2019,09/02/2018 Influenza, injectable, quadrivalent 09/05/2019 Influenza, injectable, quadrivalent, preservativ e free 10/30/2020,09/02/2018 Family History Medical History Relation Name Comments Cardiac disorder Father Hyperlipidemia Father Hypertension Father Hyperlipidemia Mother Relation Name Status Comments Father Mother Social History Tobacco Use Types Packs/Day Years Used Date Smoking Tobacco: Never Smokeless Tobacco: Never Tobacco Cessation:Counseling Given: Not Answered Sex and Gender Information Value Date Recorded Sex Assigned at Not on file Legal Sex Male 7:05 PM EDT Gender Identity Not on file Sexual Orientation Not on file Last Filed Vital Signs Vital Sign Reading Time Taken Comments Blood Pressure 137/87 07/07/2025 11:35 AM EDT Pulse 77 07/07/2025 11:35 AM EDT Temperature 36.5 C (97.7 F) 08/19/2024 9:09 AM EDT Respiratory Rate 18 07/07/2025 11:35 AM EDT Oxygen Saturation 98% 07/07/2025 11:35 AM EDT Inhaled Oxygen Concentration - - Weight 126 kg (277 lb) 07/07/2025 11:35 AM EDT Height 177.8 cm (5' 10 ) 07/07/2025 11:35 AM EDT Body Mass Index 39.75 07/07/2025 11:35 AM EDT Plan of Treatment Upcoming Encounters Date Type Department Care Team (Late st Contact Info) Description 02/02/2026 11:40 AM EDT Office Visit [facility] [address] [place] [address] Poncho Warren MD [address] [place] [address] Health Maintenance Due Date Last Done Comments [facility]-Depression Screening 1986 [facility]-HIV Screening 1986 [facility]-Hepatitis C Screening 1986 [facility]-Infant/Child/Adol SDOH Screenings 1986 [facility]-Varicella Vaccines (1 of 2 - 13+ 2-dose series) 1999 [facility]- SDOH Screenings 2004 [facility]-Adult SDOH Screenings 2004 [facility]-DTaP,Tdap,and Td Vaccine s (1 - Tdap) 2005 [facility]-Hepatitis B Vaccines (1 of 3 - 19+ 3-dose series) 2005 HPV Vaccines (1 - 3-dose SCD M series) 2013 [id number] Vaccine ( season) 2025 09/11/2021, 12/21/2020, 11/21/2020 [facility]-Influenza Vaccine (#1) 07/03/202510/30, 09/05/2019, 09/02/2018 [facility]-Zoster Vaccines (1 of 2) 2036 [facility]-Hepatitis A Vaccines Aged Out 019, 09/02/2018 No longer eligible based on patient's age to complete this topic [facility]-Obesity Intervention Completed 024, 10/12/2023 [facility]-HIB Vaccines Aged Out No longer e ligible based on patient's age to complete this topic [facility]-IPV Vaccines Aged Out No longer e ligible based on patient's age to complete this topic [facility]-Pneumococcal Vaccine: Pediatrics (0 to 5 Years) and At-Risk Patients (6 to 49 Years) Aged Out No longer eligible b ased on patient's age to complete this topic [facility]-Rotavirus Vaccines Aged Out No lo nger eligible based on patient's age to complete this topic Insurance [facility] [place] [id number] DEWAYNE Care Teams Slime Plant Operator Helper Relationship Specialty Start Date End Date Luis E Rogers MD [address] [facility] [address] [place] [address] PCP - General 03/15/21
--- OUTSIDE RECORDS SUMMARY | 2025-07-13 07:29 | XMS_ITS | Encounter Summary ---
Author Organization [facility] Address [address] [place] [address] Care Team Providers Care Aids Social Worker Name Role Phone Luis E Rogers MD Primary Care Provider + [phone] Reason for Visit * Reason Comments Med Refill Encounter Details Date Type Department Care Team (Late st Contact Info) Description 04/03/2025 Refill [facility] [address] [place] [address] Hui Reyes MD [facility] [address] [phone] FSGS (focal segmental glomerulosclerosis); Hypertension, unspecified type Social History Tobacco Use Types Packs/Day Years Used Date Smoking Tobacco: Never Smokeless Tobacco: Never Sex and Gender Information Value Date Recorded Sex Assigned at Not on file Legal Sex Male 7:05 PM EDT Gender Identity Not on file Sexual Orientation Not on file documented as of this encounter Miscellaneous Notes * Telephone Encounter - Sharlene Ling - 04/03/2025 9:23 AM EDT Pt should have a 1 yr rx under Poncho Warren until 09/2025 documented in this encounter Plan of Treatment Upcoming Encounters Date Type Department Care Team (Late st Contact Info) Description 02/02/2026 11:40 AM EDT Office Visit 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
--- OUTSIDE RECORDS SUMMARY | 2025-07-13 07:30 | XMS_ITS | Patient Health Record ---
Author Organization [facility] Address [address] [id number] Care Team Providers Care Reservoir Caretaker Name Role Phone Lauren Pradhan Primary Care Provider Ken Ulis E Unavailable [phone] Allergies Allergen (clinical drug ingredient) Drug/Non Drug [...] 1.39 Performing Lab: Notes/Report: Test performed by [facility] [address] [place] [address] , [address], [place] [address] Jhony Dangelo MD, Document Controller CLIA: [id number] Sodium 145 135-145 mmol/L Potassium 4.1 3.5-5.3 [...] 201 Performing Lab: Notes/Report: Test performed by [facility] [address] [place] [address] , [address], [place] [address] Jhony Dangelo MD, Document Controller CLIA: [id number] Cholesterol 236 <200 mg/dL Triglycerides 603 <150 [...] Interpretation:Normal Performing Lab: Notes/Report: Test performed by [facility] , [place] [address] Jhony Dangelo MD, Document Controller CLIA: [id number] Phosphorus 3.1 2.5-4.5 mg/dL P-TSH reflex to FT4 Reviewed date:10/18/2024 08:13:51 AM Interpretation:Normal Performing Lab: Notes/Report: [facility] [address] , [place] [address] Jhony Dangelo MD, Document Controller CLIA: [id number] TSH reflex to FT4 2.76 0.43-5.25 mU/L P-Microalbumin/Creatinine, R andom Urine Sample Reviewed date:10/18/2024 08:13:51 AM Interpretation:alb/creat 3186 Performing Lab: Notes/Report: Test performed by [facility] [address] , [address], [place] [address] Jhony Dangelo MD, Document Controller CLIA: [id number] Albumin/Creatinine Ratio, Urine 3186 0-30 ug/mg Microalbumin, Urine, Random 267.3 Creatinine, Urine 83.9 P-Vitamin D 25-Hydroxy Reviewed date:10/18/2024 08:13:51 AM Interpretation: Performing Lab: Notes/Report: Test performed by [facility] [address] , [address], [place] [address] Jhony Dangelo MD, Document Controller CLIA: [id number] Vitamin D 25-Hydroxy 15.9 30.0-100.0 ng/mL Interpretation of Vitamin D 25 OH: < 20 ng/mL - Deficiency 20 - 29 ng/mL - Insufficiency 30 - 100 ng/mL - Sufficiency > 100 ng/mL - Super-therapeutic- toxicity may occur above this level. Clinical correlation required. Reason For Referral No Information Medications Medication SIG (Take, Route, Frequency, Duration) Notes Start Date End Date Status Valsartan 320 MG 1 tab(s) orally once a day; Duration: 90 days Active Carvedilol 12.5 MG 1 tab(s) orally 2 ti mes a day; Duration: 90 days Active hydroCHLOROthiazide 12.5 MG 1 capsule in the morning Orally Once a day; Duration: 90 days Active Icosapent Ethyl 1 GM 2 capsules with oly ls Orally Twice a day; Duration: 90 days 10/19/2024 Active Fenofibrate 145 MG 1 tab(s) orally once a day; Duration: 90 days Active Zetia 10 MG 1 tab(s) orally once a day; Duration: 90 days Active Rosuvastatin Calcium 40 MG TAKE 1 TABLET BY MOUTH DAILY; Duration: 90 days Active D3-50 1.25 MG (76137 UT) 1 cap(s) orally once a week; Duration: 90 days Active Aspirin 81 MG 1 tab(s) orally once a day Active Jardiance 10 MG 1 tablet Orally Once a day; Duration: 90 days 10/14/2024 Active Immunizations Vaccine Route Administration Date Status Comme nts Hepatitis A (adult) Unknown 09/02/2018 Administered Hepatitis A (adult) Unknown 03/18/2019 Administered Fluzone Quad (6months&older) Unknown 09/05/2019 Adminis tered Fluzone PF Quad (6-35 months) Unknown 09/02/2018 Admini stered Fluzone PF Quad (6-35 months) Unknown 10/30/2020 Admini stered COVID 19 Moderna Unknown 11/21/2020 Administered COVID 19 Moderna Unknown 11/23/2020 Administered COVID 19 Moderna Unknown 12/21/2020 Administered COVID 19 Moderna Unknown 09/11/2021 Administered Problems Problem Type SNOMED Code ICD Code Onset Dates Problem Status W/U Status Risk Notes Problem Vitamin D deficiency (96792001) Vitamin D deficiency (E55.9) Active confirmed Problem Essential hypertension (13755224) Essential hypertension (I10) Active confirmed Problem Morbid obesity (239228012) Morbid obesity (E66.01) Active confirmed Problem Hypertriglyceridemia (644876459) Hypertriglyceridemia (E78.1) Active confirmed Problem Skin sensation disturbance (35464783) Paresthesia of right arm (R20.2) Active confirmed Problem Mixed hyperlipidemia (002779520) Mixed hyperlipidemia (E78.2) Active confirmed Problem Atherosclerotic hear t disease of [place] coronary artery without angina pectoris (177354405311872) Coronary artery disease involving [place] coronary artery of [place] heart without angina pectoris (I25.10) Active confirmed Problem Upper respiratory infection (44528848) Upper respiratory tract infection, unspecified type (J06.9) Active confirmed Problem History and physical examination, pre-employment (956851054) Physical exam, pre-employment (Z02.1) Active confirmed Problem Carpal tunnel syndrome (55778656) Right carpal tunnel syndrome (G56.01) Active confirmed Problem Impaired fasting glycaemia (748128350) IFG (impaired fasting glucose) (R73.01) Active confirmed Problem single functional kidney (finding) (129066989) Solitary kidney (Q60.0) Active confirmed Problem Pure hyperglyceridemia (713752011) Acquired hypertriglyceridemia (E78.1) Active confirmed Problem Obesity (007438180) Non morbid o besity (E66.9) Active confirmed Problem Chronic renal failur e syndrome (03493935) Chronic kidney disease, unspecified CKD stage (N18.9) Active confirmed Problem Renal atrophy (623511919) Renal atrophy (N26.1) Active confirmed Problem Chronic kidney disease stage 3A (disorder) (971459469) Stage 3a chronic kidney disease (CKD) (N18.31) Active confirmed Vital Signs Heart Rate 90 /min 05/04/2025 Blood pressure diastolic 90 mm Hg 05/04/2025 Height 69 in 05/04/2025 Blood pressure systolic 144 mm Hg 05/04/2025 Weight 283 lbs 05/04/2025 BMI 41.79 kg/m2 05/04/2025 Encounters Encounter Location Date Provider Diagnosis [facility] [address] [facility] [address] [place], [place] [id number] 10/14/2024 Luis E Rogers Essential hypertensi on I10 ; Mixed hyperlipidemia E78.2 ; Acquired hypertriglyceridemia E78.1 ; Vitamin D deficiency E55.9 ; IFG (impaired fasting glucose) R73.01 and Stage 3a chronic kidney disease (CKD) N18.31 [facility] [address] [facility] [address] [place], [place] [phone] 05/04/2025 Luis E Granger Essential hypertensi on I10 ; Acquired hypertriglyceridemia E78.1 ; Vitamin D deficiency E55.9 ; Mixed hyperlipidemia E78.2 ; IFG (impaired fasting glucose) R73.01 ; Morbid obesity E66.01 and Chronic kidney disease, unspecified CKD stage N18.9 [facility] [address] [place], [place] [id number] 10/18/2024 Luis E Granger [facility] [address] [place] [id number] 11/23/2024 Lauren Pradhan [facility] [address] [place] [id number] 05/02/2025 Lauren Pradhan Assessments Encounter Date Diagnosis (ICD Code) Assessment Notes Treatment Notes Treatment Clinical Notes Section Notes 05/04/2025 Essential hypertensi on (ICD-10 - I10) 05/04/2025 Acquired hypertriglyceridemia (ICD-10 - E78.1) 10/14/2024 Essential hypertensi on (ICD-10 - I10) 10/14/2024 Mixed hyperlipidemia (ICD-10 - E78.2) 10/14/2024 Acquired hypertriglyceridemia (ICD-10 - E78.1) 05/04/2025 Vitamin D deficiency (ICD-10 - E55.9) 05/04/2025 Mixed hyperlipidemia (ICD-10 - E78.2) 10/14/2024 Vitamin D deficiency (ICD-10 - E55.9) 10/14/2024 IFG (impaired fastin g glucose) (ICD-10 - R73.01) 05/04/2025 IFG (impaired fastin g glucose) (ICD-10 - R73.01) 05/04/2025 Morbid obesity (ICD- 10 - E66.01) 10/14/2024 Stage 3a chronic kid black disease (CKD) (ICD-10 - N18.31) 05/04/2025 Chronic kidney disea se, unspecified CKD stage (ICD-10 - N18.9) 05/04/2025 Other Patient will return for the following fasting labs: CMP, Lipid, urine microalbumin /Creat and Vit D Plan Of Treatment Pending Test Test Name Order Date H-TSH 07/01/2023 H-CBC 07/01/2023 H-VITAMIN D 07/01/2023 H-Microalbumine/Creatinine 07/01/2023 Insurance Providers Payer Name Payer Address Payer Phone Subscriber Number Group Number Insured Name Patient Relationship to Insured Coverage Start Date Coverage End Date DEWAYNEFATIMAH AAMIR FRANKSSYDNIELIEN OMAR [address] [place] [address] [id number] Morris Barnett Self - patient is the insured Medical (General) History Medical History History ICD Code Coronary Artery Disease Chronic Kidney Disease Stage 2 - Dx. Dec (N18.2) hyperlipidemia hypertension hypertriglyceridemia Impaired fasting glucose Vitamin D deficiency Surgical History Surgery Date(Month/Year) Heart Cath, Stent x 2 2009 Tonsillectomy 2004 Kidney Biopsy - Negative 10/2020 Hospitalization History Reason Date(Month/Year) [facility] 06/12/2018
[2025-07-13 07:32] LABS: Microscopic, Urine URINE MICROSCOPIC (MICROSCOPIC)
[2025-07-13 08:15] LABS: Bilirubin,Urine Negative (Negative); Color,Urine YELLOW (Yellow); Glucose,Urine (UA) 3+ (Negative); Hematocrit 41.9 % (42.0-52.0); Hemoglobin 14.4 g/dL (14.1-18.0); Immature Granulocytes % 0.4 %; Ketones,Urine Negative (Negative); Leukocyte Esterase,Urine Negative (Negative); Mean Corpuscular HGB Conc 34.4 g/dL (31.8-35.4); Mean Corpuscular Hemoglobin 30.6 pg (27.0-31.2); Mean Corpuscular Volume 89.1 fl (80-94); Nucleated Red Blood Cells % 0 %; PH,Urine 5.5 (5.0-8.5); Platelet Count 182 K/mm3 (142-424); Protein,Urine 2+ (Negative); Red Blood Count 4.70 M/mm3 (4.60-6.20); Red Cell Distribution Width-SD 43.6 fL; Specific Gravity, Urine 1.020 (1.005-1.030); Urobilinogen,Urine 0.2 EU/dl (0.2); White Blood Count 4.5 K/mm3 (4.8-10.8)
[2025-07-13 08:57] LABS: Alanine Aminotransferase 35 U/L (12-78); Albumin Level 4.4 g/dl (3.5-5.0); Albumin/Globulin Ratio 1.8 (1.1-1.8); Alkaline Phosphatase 63 U/L (38-126); Anion Gap 12.1 mEq/L (5-15); Aspartate Amino Transferase 30 U/L (17-59); Bilirubin,Total 0.5 mg/dl (0.2-1.3); Blood Urea Nitrogen 24 mg/dl (9-20); Calcium 9.3 mg/dl (8.4-10.2); Carbon Dioxide 23 mmol/L (22.0-30.0); Chloride 110 mmol/L (98-107); Creatinine,Serum 1.70 mg/dl (0.66-1.25); Estimated Glomerular Filt Rate 45 ml/min (>60); GFR (African American) 55 ML/MIN (>60); Globulin 2.4 g/dL (1.3-3.2); Glucose 125 mg/dl (74-100); Phosphorous 3.3 mg/dl (2.5-4.5); Potassium 4.1 mmoL/L (3.5-5.1); Sodium 141 mmol/L (136-145); Total Protein,Serum 6.8 g/dl (6.3-8.2); WBC,Urine Occasional #/hpf (0-3)
== END 2025-07-13 23:59 | disposition home or self-care (01) ==
LOC: LAB 07:27
PROVIDERS: PCP Family Medicine; Visit Provider Student in an Organized Health Care Education/Training Program
DX: N26.9 Renal sclerosis, unspecified (principal)
CPT/HCPCS: 36415; 80053; 80069; 81001; 82570; 84156; 85025